=== PATIENT | male | born 1930 | race Caucasian/White ===

== ENCOUNTER → 2016-10-21 | Outpatient (CLI) | payer MEDICARE | LOC: OD 09:51 | PROVIDERS: ATTEND Urology | DX: N40.0 Benign prostatic hyperplasia without lower urinary tract symptoms (principal) | CPT/HCPCS: 36415; 84153 ==

== ENCOUNTER 2017-10-09 09:28 | Emergency (ER) | payer MEDICARE ==
[2017-10-09] MEDS ORDERED: NORMAL SALINE 1000 ML 1,000 ML IV ONE (09:42)
[2017-10-09] MEDS ORDERED: ONDANSETRON HCL INJ/PF 4 MG/2 ML SDV IV ONE (09:43)
--- NOTE | 2017-10-09 09:45 | ER Document Report ---
ED Medical Screen (RME) - General Chief Complaint: Abdominal Pain Stated Complaint: STOMACH PAIN Time Seen by Provider: 10/09/17 09:39 Mode of Arrival: Ambulatory Information source: Patient Notes: 87-year-old male who is supposed to be on oxygen but did not come with his portable presents with complaints of abdominal pain. Patient notes he has a history of bladder cancer, had abdominal pain that started yesterday associated with vomiting Patient's last bowel movement was yesterday I have greeted and performed a rapid initial assessment of this patient. A comprehensive ED assessment and evaluation of the patient, analysis of test results and completion of the medical decision making process will be conducted by additional ED providers. PHYSICAL EXAMINATION: GENERAL: Well-appearing, well-nourished and in no acute distress. HEAD: Atraumatic, normocephalic. EYES: Pupils equal round extraocular movements intact, conjunctiva are normal. ENT: Nares patent NECK: Normal range of motion ABDOMEN: Firm tender LUNGS: intermittent wheezing Musculoskeletal: Normal range of motion NEUROLOGICAL: Normal speech, normal gait. PSYCH: Normal mood, normal affect. SKIN:lips are dusky TRAVEL OUTSIDE OF THE [place] IN LAST 30 DAYS: No - Related Data Allergies/Adverse Reactions: No Known Allergies Allergy (Verified 10/09/17 09:33) Past Medical History Psychiatric Medical History: Denies: Hx Depression Past Surgical History: Reports: Hx Cardiac Surgery - filter Physical Exam - Vital signs Vitals: Temp Pulse Resp BP Pulse Ox 97.6 F 58 L 20 126/72 H 87 L 10/09/17 09:39 10/09/17 09:39 10/09/17 09:39 10/09/17 09:39 10/09/17 09:39 Course - Vital Signs Vital signs: Temp Pulse Resp BP Pulse Ox 97.6 F 58 L 20 126/72 H 87 L 10/09/17 09:39 10/09/17 09:39 10/09/17 09:39 10/09/17 09:39 10/09/17 09:39
[2017-10-09 10:17] LABS: HEMATOCRIT 53.5 % (37.9-51.0); HEMOGLOBIN 18.3 g/dL (13.5-17.0); MEAN CORPUSCULAR HEMOGLOBIN 33.7 pg (27.0-33.4); MEAN CORPUSCULAR HGB CONC 34.1 g/dL (32.0-36.0); MEAN CORPUSCULAR VOLUME 99 fl (80-97); PLATELET COUNT 285 10^3/uL (150-450); RED BLOOD COUNT 5.42 10^6/uL (4.35-5.55); RED CELL DISTRIBUTION WIDTH 14.4 % (11.5-14.0); WHITE BLOOD COUNT 23.4 10^3/uL (4.0-10.5)
[2017-10-09 10:36] LABS: INTERNATIONAL RATION (INR) 1.49; PROTHROMBIN TIME 18.9 SEC (11.4-15.4)
[2017-10-09 10:41] LABS: ABSOLUTE LYMPHOCYTES# (MANUAL) 0.2 10^3/uL (0.5-4.7); ABSOLUTE MONOCYTES # (MANUAL) 1.6 10^3/uL (0.1-1.4); ABSOLUTE NEUTROPHILS# (MANUAL) 21.5 10^3/uL (1.7-8.2); BASOPHILS % (MANUAL) 0 % (0-2); EOSINOPHILS % (MANUAL) 0 % (0-6); LYMPHOCYTES % (MANUAL) 1 % (13-45); MONOCYTES % (MANUAL) 7 % (3-13); SEGMENTED NEUTROPHILS % (MAN) 92 % (42-78); TOTAL CELLS COUNTED 100
[2017-10-09 10:44] LABS: ANISOCYTOSIS SLIGHT; PLATELET COMMENT ADEQUATE; TOXIC GRANULATION 1+; TOXIC VACUOLATION PRESENT
[2017-10-09 10:46] LABS: COLOR,URINE STRAW
[2017-10-09 10:47] LABS: APPEARANCE,URINE CLEAR; BILIRUBIN,URINE NEGATIVE (NEGATIVE); GLUCOSE, URINE NEGATIVE (NEGATIVE); KETONES,URINE NEGATIVE (NEGATIVE); LEUKOCYTE ESTERASE,URINE NEGATIVE (NEGATIVE); NITRITE,URINE NEGATIVE (NEGATIVE); PROTEIN,URINE NEGATIVE (NEGATIVE); URINE SPECIFIC GRAVITY 1.015; UROBILINOGEN,URINE NEGATIVE mg/dL (<2.0)
[2017-10-09 11:19] LABS: ALANINE AMINOTRANSFERASE 16 U/L (21-72); ALBUMIN 3.9 g/dL (3.5-5.0); ALKALINE PHOSPHATASE 66 U/L (38-126); ANION GAP 9 (5-19); ASPARTATE AMINO TRANSFERASE 24 U/L (17-59); BILIRUBIN,DIRECT 0.7 mg/dL (0.0-0.4); BILIRUBIN,TOTAL 2.8 mg/dL (0.2-1.3); BLOOD UREA NITROGEN 49 mg/dL (7-20); CALCIUM 8.8 mg/dL (8.4-10.2); CARBON DIOXIDE 35 mmol/L (22-30); CHLORIDE 94 mmol/L (98-107); GLUCOSE 97 mg/dL (75-110); SODIUM 138.1 mmol/L (137-145); TOTAL PROTEIN 7.4 g/dL (6.3-8.2)
[2017-10-09 11:21] LABS: POTASSIUM 2.9 mmol/L (3.6-5.0)
[2017-10-09] MEDS ORDERED: AMPICILLIN SOD/SULBACTAM 3 GM VIAL IV ONE (11:40)
--- NOTE | 2017-10-09 11:40 | RADIOLOGY REPORT (SQ) ---
EXAM DESCRIPTION: ACUTE ABDOMEN SERIES COMPLETED DATE/TIME: 10/09/2017 11:05 am REASON FOR STUDY: abd pain, hypoxemia COMPARISON: None. NUMBER OF VIEWS: Three views. TECHNIQUE: Frontal chest, supine abdomen and upright/ abdomen radiographic images acquired. LIMITATIONS: None. FINDINGS: CHEST: Chronic interstitial changes are present. FREE AIR: None. No abnormal gas collections. BOWEL GAS PATTERN: Nonobstructive gas pattern. A large amount of fecal material is present. CALCIFICATIONS: No suspicious calcifications. HARDWARE: None in the abdomen. SOFT TISSUES: No gross mass or suggestion of organomegaly. BONES: No acute fracture. No worrisome bone lesions. OTHER: No other significant finding. IMPRESSION: Chronic lung changes. Constipation. TECHNICAL DOCUMENTATION: JOB ID: [id number] [employer]- All Rights Reserved Reading location - IP/workstation name: [email or web address]
[2017-10-09] MEDS ORDERED: RINGERS SOLUTION,LACTATED 1,000 ML IV ONE (11:48)
--- NOTE | 2017-10-09 13:43 | RADIOLOGY REPORT (SQ) ---
EXAM DESCRIPTION: CT ABD/PELVIS WITH IV ORAL COMPLETED DATE/TIME: 10/09/2017 12:53 pm REASON FOR STUDY: abd pain, vomiting , hx bladder ca COMPARISON: CT abdomen pelvis 12/28/2014, 09/30/2013 TECHNIQUE: CT scan of the abdomen and pelvis performed using helical scanning technique with dynamic intravenous contrast injection. Patient drank oral contrast. Images reviewed with lung, soft tissue , and bone windows. Reconstructed coronal and sagittal MPR images reviewed. Delayed images for evalua tion of the urinary system also acquired. All images stored on PACS. All CT scanners at this facility use dose modulation, iterative reconstruction, and/or weight based d osing when appropriate to reduce radiation dose to as low as reasonably achievable (ALARA). [facility]: Dose Right [facility]: CareDose [facility]: Dose Right [facility]: Teradose 4D [facility]: [employer] CONTRAST TYPE AND DOSE: contrast/concentration: Isovue 370.00 mg/ml; Total Contrast Delivered: 75.0 ml; Total Saline Delivered: 67.0 ml RENAL FUNCTION: Creatinine 1.06 RADIATION DOSE: CT Rad equipment meets quality standard of care and radiation dose reduction techniq ues were employed. CTDIvol: 7.3 - 10.8 mGy. DLP: 855 mGy-cm.. LIMITATIONS: None. FINDINGS: LOWER CHEST: Small hiatal hernia, with mild gastroesophageal reflux. LIVER: Normal size. No masses. No dilated ducts. SPLEEN: Surgically absent. PANCREAS: Subtle retroperitoneal inflammation along the pancreatic body tail. Question pancreatitis. No gross pancreatic mass or pancreatic ductal dilatation. GALLBLADDER: Gallstones. No inflammatory changes to suggest cholecystitis. ADRENAL GLANDS: No significant masses or asymmetry. RIGHT KIDNEY AND URETER: No solid masses. No significant calcifications. No hydronephrosis or hyd roureter. LEFT KIDNEY AND URETER: No solid masses. No significant calcifications. No hydronephrosis or hydr oureter. AORTA AND VESSELS: No aneurysm. No dissection. Visceral arteries are patent. IVC filter. RETROPERITONEUM: No retroperitoneal adenopathy, hemorrhage or masses. BOWEL AND PERITONEAL CAVITY: No masses or inflammatory changes. No free fluid or peritoneal masses. Patient drank oral contrast. No CT evidence of bowel obstruction. Moderate stool throughout colon. APPENDIX: Normal. PELVIS: No mass. No free fluid. Normal bladder. ABDOMINAL WALL: No masses. No hernias. BONES: No significant or acute findings. OTHER: No other significant finding. IMPRESSION: Question mild peripancreatic inflammation from pancreatitis. No CT evidence of bowel obstruction. There are stones in the gallbladder without gallbladder wall thickening or pericholecystic fluid. TECHNICAL DOCUMENTATION: JOB ID: [id number] Quality ID # [id number]: Final reports with documentation of one or more dose reduction techniques (e.g., Au tomated exposure control, adjustment of the mA and/or kV according to patient size, use of iterative reconstruction technique) 2010 [employer]- All Rights Reserved Reading location - IP/workstation name: [email or web address]
--- NOTE | 2017-10-09 15:19 | ER Document Report ---
ED General - General Mode of Arrival: Ambulatory TRAVEL OUTSIDE OF THE [place] IN LAST 30 DAYS: No - HPI Patient complains to provider of: Epigastric abdominal pain <DESIREE PABLO - Last Filed: 10/09/17 15:20> <FUNMILAYO FENG - Last Filed: 10/09/17 22:16> - General Chief Complaint: Abdominal Pain Stated Complaint: STOMACH PAIN Time Seen by Provider: 10/09/17 09:39 - HPI Notes: Patient coming in for epigastric abdominal pain nausea vomiting ongoing for the last 24 hours. Patient states no bowel movements not passing gas currently. Patient states history of abdominal surgery in the past however continues to have his appendix and gallbladder. Patient is unaware what the surgery was for. Patient denies any fevers or chills. Upon my evaluation patient is bent over holding his abdomen drinking oral contrast is no CT scan was ordered in triage. Denies any sick contacts denies any recent travel. (DESIREE PABLO) - Related Data Allergies/Adverse Reactions: No Known Allergies Allergy (Verified 10/09/17 09:33) Past Medical History - General Information source: Patient - Social History Smoking Status: Former Smoker Chew tobacco use (# tins/day): No Frequency of alcohol use: None Drug Abuse: None Family History: Reviewed & Not Pertinent Patient has suicidal ideation: No Patient has homicidal ideation: No Renal/ Medical History: Denies: Hx Peritoneal Dialysis Psychiatric Medical History: Denies: Hx Depression Past Surgical History: Reports: Hx Cardiac Surgery - filter - Immunizations Hx Pneumococcal Vaccination: 07/13/11 <DESIREE PABLO - Last Filed: 10/09/17 15:20> Review of Systems - Review of Systems Constitutional: No symptoms reported EENT: No symptoms reported Cardiovascular: No symptoms reported Respiratory: No symptoms reported Gastrointestinal: Abdominal pain, Nausea, Vomiting Genitourinary: No symptoms reported Male Genitourinary: No symptoms reported Musculoskeletal: No symptoms reported Skin: No symptoms reported Hematologic/Lymphatic: No symptoms reported Neurological/Psychological: No symptoms reported -: Yes All other systems reviewed and negative <DESIREE PABLO - Last Filed: 10/09/17 15:20> Physical Exam - Vital signs Interpretation: Normal - General General appearance: Appears well, Alert - HEENT Head: Normocephalic, Atraumatic Eyes: Normal Pupils: PERRL - Respiratory Respiratory status: No respiratory distress Chest status: Nontender Breath sounds: Normal Chest palpation: Normal - Cardiovascular Rhythm: Regular Heart sounds: Normal auscultation Murmur: No - Abdominal Inspection: Normal Distension: No distension Bowel sounds: Normal Tenderness: Tender - Epigastric tenderness mild right upper quadrant tenderness as well as mild no guarding or rebound Organomegaly: No organomegaly - Back Back: Normal, Nontender - Extremities General upper extremity: Normal inspection, Nontender, Normal color, Normal ROM , Normal temperature General lower extremity: Normal inspection, Nontender, Normal color, Normal ROM , Normal temperature, Normal weight bearing. No: Katty's sign - Neurological Neuro grossly intact: Yes Cognition: Normal Orientation: AAOx4 Radha Coma Scale Eye Opening: Spontaneous Radha Coma Scale Verbal: Oriented [place] Coma Scale Motor: Obeys Commands [place] Coma Scale Total: 15 Speech: Normal Motor strength normal: LUE, RUE, LLE, RLE Sensory: Normal - Psychological Associated symptoms: Normal affect, Normal mood - Skin Skin Temperature: Warm Skin Moisture: Dry Skin Color: Normal <DESIREE PABLO - Last Filed: 10/09/17 15:20> - Vital signs Vitals: Temp Pulse Resp BP Pulse Ox 97.6 F 58 L 20 126/72 H 87 L 10/09/17 09:39 10/09/17 09:39 10/09/17 09:39 10/09/17 09:39 10/09/17 09:39 Course - Laboratory Result Diagrams: 10/09/17 09:58 10/09/17 10:47 <DESIREE PABLO - Last Filed: 10/09/17 15:20> - Laboratory Result Diagrams: 10/09/17 09:58 10/09/17 10:47 <FUNMILAYO FENG - Last Filed: 10/09/17 22:16> - Re-evaluation Re-evalutation: 10/09/17 15:15 Patient coming in for epigastric pain patient has leukocytosis with elevation in his pancreatic enzymes. No fever patient's CAT scan showed cholelithiasis and pancreatic stranding consistent with pancreatitis. Patient does have a slight elevation in his bilirubin. I did discuss with the hospitalist Dr. tello pancreatitis the patient has gallstones and pancreatitis concern for gallstone pancreatitis and with elevation of bilirubin is recommended that we transfer to facility that can perform a ERCP. Discussed with family at bedside and agree with to be transferred to [facility] at this time. Patient case was discussed with Dr. Kang who agreed to accept the patient in transfer. Currently patient pain is manageable nausea vomiting also manageable. Is to give a dose of Unasyn pending CAT scan results. We will keep the patient n.p.o. IV fluids will replace patient's potassium. 10/09/17 15:27 (DESIREE PABLO) 10/09/17 22:12 Received patient in signout. Patient with pancreatitis, leukocytosis. He is awaiting transport to [facility]. During his ED course patient did have a run of what appeared to be V. tach but EKG showed right bundle branch block with first-degree AV block. previous EKGs reviewed for comparison and unchanged. Patient without chest pain. Patient has remained stable throughout his ED course. He was reevaluated prior to transfer to [facility]. 10/09/17 22:14 10/09/17 22:16 (FUNMILAYO FENG) - Vital Signs Vital signs: Temp Pulse Resp BP Pulse Ox 97.8 F 58 L 19 106/68 91 L 10/09/17 22:00 10/09/17 09:39 10/09/17 21:56 10/09/17 21:56 10/09/17 21:56 - Laboratory Laboratory results interpreted by me: 10/09/17 10/09/17 10/09/17 09:58 09:58 10:17 WBC 23.4 H Hgb 18.3 H Hct 53.5 H MCV 99 H MCH 33.7 H RDW 14.4 H Seg Neuts % (Manual) 92 H Lymphocytes % (Manual) 1 L Abs Neuts (Manual) 21.5 H Abs Lymphs (Manual) 0.2 L Abs Monocytes (Manual) 1.6 H PT 18.9 H Potassium Chloride Carbon Dioxide BUN Lactic Acid 2.6 H Total Bilirubin Direct Bilirubin ALT Lactate Dehydrogenase Lipase 10/09/17 10/09/17 10/09/17 10:47 10:47 14:25 WBC Hgb Hct MCV MCH RDW Seg Neuts % (Manual) Lymphocytes % (Manual) Abs Neuts (Manual) Abs Lymphs (Manual) Abs Monocytes (Manual) PT Potassium 2.9 L* Chloride 94 L Carbon Dioxide 35 H BUN 49 H Lactic Acid 2.3 H Total Bilirubin 2.8 H Direct Bilirubin 0.7 H ALT 16 L Lactate Dehydrogenase Lipase 1721.3 H 10/09/17 14:25 WBC Hgb Hct MCV MCH RDW Seg Neuts % (Manual) Lymphocytes % (Manual) Abs Neuts (Manual) Abs Lymphs (Manual) Abs Monocytes (Manual) PT Potassium Chloride Carbon Dioxide BUN Lactic Acid Total Bilirubin Direct Bilirubin ALT Lactate Dehydrogenase 783 H Lipase Discharge <DESIREE PABLO - Last Filed: 10/09/17 15:20> <FUNMILAYO FENG - Last Filed: 10/09/17 22:16> - Discharge Clinical Impression: Hypokalemia, Elevated bilirubin Cholelithiasis Qualifiers: Cholelithiasis location: gallbladder Cholecystitis presence: without cholecystitis Pancreatitis Qualifiers: Chronicity: acute Pancreatitis type: biliary Acute pancreatitis complication: unspecified Qualified Code(s): K85.10 - Biliary acute pancreatitis without necrosis or infection Nausea & vomiting Qualifiers: Vomiting type: unspecified Vomiting Intractability: unspecified Qualified Code( s): R11.2 - Nausea with vomiting, unspecified Condition: Fair Disposition: [facility] Referrals: SATISH ACOSTA MD [Primary Care Provider] - Follow up as needed
[2017-10-09] MEDS: POTASSI CL 20 MEQ/50 ML RIDER 20 MEQ/50 ML RTUPB IV SCH ×2 (15:27→16:37)
[2017-10-09] MEDS ORDERED: ERTAPENEM SODIUM INJ 1 GM VIAL IV SCH (18:00)
[2017-10-09 22:01] VITALS: BP 106/68
--- NOTE | 2017-10-10 10:25 | EKG REPORT ---
SEVERITY:- ABNORMAL ECG - SINUS RHYTHM FIRST DEGREE AV BLOCK RIGHT BUNDLE BRANCH BLOCK INFERIOR INFARCT, AGE INDETERMINATE (OLD) : Confirmed by: King Reynolds MD 10-Oct-2017 10:25:03
== END 2017-10-09 22:10 | disposition short-term general hospital (02) ==
LOC: ER 09:28
DX: K85.10 Biliary acute pancreatitis without necrosis or infection (principal); K80.20 Calculus of gallbladder without cholecystitis without obstruction; E87.6 Hypokalemia; E80.7 Disorder of bilirubin metabolism, unspecified; R11.2 Nausea with vomiting, unspecified; R10.13 Epigastric pain; Z87.891 Personal history of nicotine dependence
CPT/HCPCS: 93005; 99285; 96361; 96375; 96365; 96366; 96367; 96368; 36415; 83615; 83690; 83735; 85025; 85610; 80053; 81001; 83605; 74022; 74177; 93010; J0295; J1335; J2405; J3480; J7030; J7120

== ENCOUNTER 2017-10-30 21:36 | Inpatient (IN) | payer MEDICARE ==
[2017-10-30 22:28] LABS: HEMATOCRIT 53.3 % (37.9-51.0); HEMOGLOBIN 18.4 g/dL (13.5-17.0); MEAN CORPUSCULAR HEMOGLOBIN 33.7 pg (27.0-33.4); MEAN CORPUSCULAR HGB CONC 34.4 g/dL (32.0-36.0); MEAN CORPUSCULAR VOLUME 98 fl (80-97); PLATELET COUNT 385 10^3/uL (150-450); RED BLOOD COUNT 5.45 10^6/uL (4.35-5.55); RED CELL DISTRIBUTION WIDTH 14.2 % (11.5-14.0); WHITE BLOOD COUNT 24.6 10^3/uL (4.0-10.5)
[2017-10-30] MEDS ORDERED: NORMAL SALINE 500 ML IV ONE (22:30)
[2017-10-30] MEDS ORDERED: CEFEPIME 2 GM/D5W RTU 2 GM/50 ML RTUPB IV ONE (22:31)
[2017-10-30 22:35] LABS: ANION GAP 16 (5-19)
[2017-10-30 22:42] LABS: VENOUS BLOOD BASE EXCESS 8.4 mmol/L; VENOUS BLOOD HCO3 33.4 mmol/L (20-32); VENOUS BLOOD PCO2 45.2 mmHg (35-63); VENOUS BLOOD PH 7.49 (7.30-7.42)
[2017-10-30 22:45] LABS: ABSOLUTE LYMPHOCYTES# (MANUAL) 0.7 10^3/uL (0.5-4.7); ABSOLUTE MONOCYTES # (MANUAL) 1.5 10^3/uL (0.1-1.4); ABSOLUTE NEUTROPHILS# (MANUAL) 22.4 10^3/uL (1.7-8.2); BAND NEUTROPHILS % (MANUAL) 2 % (3-5); BASOPHILS % (MANUAL) 0 % (0-2); EOSINOPHILS % (MANUAL) 0 % (0-6); LYMPHOCYTES % (MANUAL) 3 % (13-45); MONOCYTES % (MANUAL) 6 % (3-13); SEGMENTED NEUTROPHILS % (MAN) 89 % (42-78); TOTAL CELLS COUNTED 100
--- NOTE | 2017-10-30 22:45 | ER Document Report ---
ED General - General Chief Complaint: Urinary Problem Stated Complaint: URINARY ISSUES Time Seen by Provider: 10/30/17 21:51 Cannot obtain history due to: Dementia Notes: Patient is an 87-year-old male with a past medical history of dementia medical history otherwise as recorded who presents from a nursing facility with concerns of a urinary tract infection and hypotension. The patient is unable to provide any meaningful history, only says "yeah" when you ask him any question. TRAVEL OUTSIDE OF THE [place] IN LAST 30 DAYS: No - Related Data Allergies/Adverse Reactions: No Known Allergies Allergy (Verified 10/09/17 09:33) Past Medical History - General Information source: Transfer Record, Emergency Med Personnel, [facility] Records Cannot obtain history due to: Dementia - Social History Smoking Status: Former Smoker Frequency of alcohol use: None Drug Abuse: None Lives with: Senior Living Family History: Reviewed & Not Pertinent Patient has suicidal ideation: No Patient has homicidal ideation: No Renal/ Medical History: Denies: Hx Peritoneal Dialysis Psychiatric Medical History: Denies: Hx Depression Past Surgical History: Reports: Hx Cardiac Surgery - filter - Immunizations Hx Pneumococcal Vaccination: 07/13/11 Review of Systems - Review of Systems -: Yes ROS unobtainable due to patient's medical condition Physical Exam - Vital signs Vitals: Resp 21 H 10/30/17 21:46 Interpretation: Hypotensive, Tachypneic Notes: PHYSICAL EXAMINATION: GENERAL: Appears stated age. Somewhat frail. Mildly lethargic HEAD: Atraumatic, normocephalic. EYES: Pupils equal round and reactive to light, extraocular movements intact, sclera anicteric, conjunctiva are normal. ENT: nares patent, oropharynx clear without exudates. Moderately dry mucous membranes. NECK: Normal range of motion, supple without lymphadenopathy LUNGS: Breath sounds clear to auscultation bilaterally and equal. No wheezes rales or rhonchi. HEART: Regular rate and rhythm ABDOMEN: Soft, nontender, normoactive bowel sounds. No guarding, no rebound. No masses appreciated. EXTREMITIES: no pitting or edema. No cyanosis. NEUROLOGICAL: No focal neurological deficits. Moves all extremities spontaneously and on command. PSYCH: Somewhat lethargic but not oriented SKIN: Warm, Dry, poor skin turgor. Course - Re-evaluation Re-evalutation: 10/30/17 22:43 Patient presents with concerns of a urinary tract infection based on results of urinalysis obtained in the skilled nursing 2 days ago. Review of that urinalysis does show findings consistent with pyelonephritis. Patient presents obviously profoundly demented but in no acute distress. He is noted to be hypotensive at time of arrival and review his most recent visit approximately 20 days ago shows that he is not hypotensive at baseline. Patient does have a history of congestive heart failure so we will be gentle fluid resuscitation by starting with a 500 cc bolus. His current map is 70 with a pressure of 90 and 60. He is not tachycardic or hypothermic. Will also begin IV cefepime for broad- spectrum coverage given his hypotension. Anticipate admission. Awaiting the remainder of laboratories. 10/30/17 23:09 Patient's blood pressure is gradually improving now up to 99 on 61. Patient continues to be somewhat lethargic but otherwise is in no overt distress. Will continue to reassess at regular intervals. Labs have returned and do show hypokalemia. We are beginning potassium and magnesium repletion. Of note, there is a national shortage of IV potassium riders so we will attempt oral potassium and IV magnesium. Patient's laboratories also so show acute kidney failure, creatinine at 2.31 up from patient's apparent baseline 1 month ago of 1.03. White blood cell count is likewise markedly elevated. Presentation is overall consistent with severe sepsis. Lactate however is only mildly elevated at 2.1. Will continue to reassess at regular intervals as patient remains in very guarded condition. 10/31/17 00:26 Patient's blood pressure has continued to improve with IV fluids. I have discussed this case with the hospitalist at this time and she has accepted him for admission. - Vital Signs Vital signs: Temp Pulse Resp BP Pulse Ox 98.8 F 18 127/89 H 96 10/31/17 01:50 10/31/17 01:46 10/31/17 01:46 10/31/17 01:46 - Laboratory Result Diagrams: 10/30/17 21:56 10/30/17 21:56 Laboratory results interpreted by me: 10/30/17 10/30/17 10/30/17 21:56 21:56 21:56 WBC 24.6 H Hgb 18.4 H Hct 53.3 H MCV 98 H MCH 33.7 H RDW 14.2 H Seg Neuts % (Manual) 89 H Band Neutrophils % 2 L Lymphocytes % (Manual) 3 L Abs Neuts (Manual) 22.4 H Abs Monocytes (Manual) 1.5 H VBG pH 7.49 H VBG HCO3 33.4 H Sodium 136.8 L Potassium 2.8 L* Chloride 82 L Carbon Dioxide 39 H BUN 102 H Creatinine 2.29 H Est GFR ( Amer) 33 L Est GFR (Non-Af Amer) 27 L Glucose 131 H Urine Protein Urine Blood Urine Urobilinogen Ur Leukocyte Esterase 10/30/17 22:55 WBC Hgb Hct MCV MCH RDW Seg Neuts % (Manual) Band Neutrophils % Lymphocytes % (Manual) Abs Neuts (Manual) Abs Monocytes (Manual) VBG pH VBG HCO3 Sodium Potassium Chloride Carbon Dioxide BUN Creatinine Est GFR ( Amer) Est GFR (Non-Af Amer) Glucose Urine Protein 30 H Urine Blood MODERATE H Urine Urobilinogen 2.0 H Ur Leukocyte Esterase LARGE H Critical Care Note - Critical Care Note Total time excluding time spent on procedures (mins): 36 Comments: Critical care time spent obtaining history from patient or surrogate, discussions with consultants, development of treatment plan with patient or surrogate, evaluation of patient's response to treatment, examination of patient , ordering and performing treatments and interventions, ordering and review of laboratory studies, re-evaluation of patient's condition, ordering and review of radiographic studies and review of old charts Discharge - Discharge Clinical Impression: Severe sepsis, Pyelonephritis, Acute kidney injury Condition: Fair Disposition: ADMITTED INPATIENT Admitting Provider: Hospitalist Unit Admitted: [facility]
[2017-10-30 22:46] LABS: ANISOCYTOSIS SLIGHT; PLATELET COMMENT ADEQUATE; TOXIC GRANULATION SLIGHT; TOXIC VACUOLATION PRESENT
[2017-10-30 22:52] LABS: BLOOD UREA NITROGEN 102 mg/dL (7-20); CALCIUM 9.4 mg/dL (8.4-10.2); CHLORIDE 82 mmol/L (98-107); GLUCOSE 131 mg/dL (75-110); SODIUM 136.8 mmol/L (137-145)
[2017-10-30 23:00] LABS: CARBON DIOXIDE 39 mmol/L (22-30)
[2017-10-30 23:03] LABS: POTASSIUM 2.8 mmol/L (3.6-5.0)
[2017-10-30] MEDS ORDERED: POTASSI CL 20 MEQ/50 ML RIDER 20 MEQ/50 ML RTUPB IV ONE ×2 (23:07→23:27)
[2017-10-30] MEDS ORDERED: POTASSIUM CHLORIDE 20 MEQ/15 ML UDCUP PO ONE (23:09)
[2017-10-30 23:24] LABS: APPEARANCE,URINE CLOUDY; BILIRUBIN,URINE NEGATIVE (NEGATIVE); COLOR,URINE YELLOW; GLUCOSE, URINE NEGATIVE (NEGATIVE); KETONES,URINE NEGATIVE (NEGATIVE); LEUKOCYTE ESTERASE,URINE LARGE (NEGATIVE); NITRITE,URINE NEGATIVE (NEGATIVE); PROTEIN,URINE 30 mg/dL (NEGATIVE)
[2017-10-30] MEDS: MAGNESIUM SULFATE/D5W 1 GM/100 ML RTUPB IV SCH ×2 (23:28→23:58)
[2017-10-31] MEDS ORDERED: RINGERS SOLUTION,LACTATED 500 ML IV ONE (00:08)
[2017-10-31] MEDS ORDERED: ACETAMINOPHEN 325 MG TABLET PO PRN ×2 (00:34→11:47)
[2017-10-31] MEDS ORDERED: ALBUTEROL SULFATE 0.083% NEB 2.5 MG/3 ML AMPUL NEB PRN ×2 (00:34→08:40)
[2017-10-31] MEDS ORDERED: PIPERACILLIN/TAZOBACTAM 2.25 GM VIAL IV PRN (00:55)
--- NOTE | 2017-10-31 01:28 | RADIOLOGY REPORT (SQ) ---
EXAM DESCRIPTION: CHEST SINGLE VIEW CLINICAL HISTORY: tachypnea COMPARISON: 12/28/2014 FINDINGS: Single frontal view of the chest. Atherosclerotic calcification and tortuosity of thoracic aorta. Heart is not enlarged. Chronic appearing interstitial opacities. Leads overlie the chest. No consolidation, pneumothorax, or pleural effusion. No displaced rib fractures identified. Upper abdominal soft tissues are unremarkable. IMPRESSION: 1. No acute pneumonic process identified.
[2017-10-31] MEDS: NORMAL SALINE 1000 ML 1,000 ML IV PRN ×2 (03:11→12:28)
[2017-10-31] MEDS ORDERED: BISACODYL 10 MG SUPP.RECT PR PRN (03:40)
[2017-10-31] MEDS ORDERED: POLYETHYLENE GLYCOL 3350 POWDER 17 GM/1 PACKET PO PRN (03:42)
--- NOTE | 2017-10-31 03:52 | PDOC H&P ---
History of Present Illness Admission Date/PCP: SATISH ACOSTA Patient complains of: Sent from SNF for further evaluation of suspected UTI. History of Present Illness: DEJON ROBLERO is a 87 year old male with reported history of dementia of Alzheimer's type, COPD (not sure if on home oxygen), CHF and atrial fib (not sure if anticoagulated) was admitted with above-mentioned complaints. Given the patient's mental status and the fact that very breif note was sent with him from SNF, most of the history was obtained from the ED physician/notes. According to the ED note, the patient was suspected to have UTI based on urinalysis done 2 days ago. The patient currently is denying any chest pain or shortness of breath or any cough. He complains of abdominal pain but he is unable to elaborate further. He was not sure if he was constipated and there was no report of any fever, nausea, vomiting or dysphagia. He said that he is able to ambulate using a cane. In the ED, his temperature was 98.3, heart rate 79, respiratory rate 21 (up to 31 so he was placed on 4 L oxygen via nasal cannula), blood pressure 83/60 with oxygen saturation of 95% on 4 L nasal cannula. His WBC was 24.6 and his hemoglobin was 18.4. His potassium was 2.8 and his BUN/creatinine was 102/2.29 (up from 49/1.06 on 10/09/2017). Lactic acid was 2.1. UA was positive. Chest x -ray is pending. He received 500 mL of both LR and NS x1. He also received 2 gm Cefepime x1 and 20 milliequivalent oral potassium 1 (since IV form is not available). Past Medical History Medical History: Other - Based on previous records. Cardiac Medical History: Reports: Atrial Fibrillation, Congestive Heart Failure , Hyperlipidema Pulmonary Medical History: Reports: Chronic Obstructive Pulmonary Disease (COPD) Psychiatric Medical History: Denies: Depression Past Surgical History Past Surgical History: Reports: Other - Based on previous records. Social History Smoking Status: Former Smoker Cigarettes Packs Per Day: 0 - 1 pack a day for about 20 years. He quit 40 years ago. Frequency of Alcohol Use: None Hx Recreational Drug Use: No Hx Prescription Drug Abuse: No - Advance Directive Resuscitation Status: Other - Needs to be clarified. Family History Parental Family History Reviewed: Yes - No family history of cardiac or diabetes per patient. Children Family History Reviewed: No Sibling(s) Family History Reviewed.: Yes Medication/Allergy Allergies/Adverse Reactions: No Known Allergies Allergy (Verified 10/09/17 09:33) Review of Systems ROS unobtainable: Other - Unable to obtain an accurate review of system given the patient's mental status. Physical Exam Vital Signs: Temp Pulse Resp BP Pulse Ox 98.3 F 37 H 106/68 93 10/30/17 22:24 10/30/17 23:42 10/30/17 23:42 10/30/17 23:31 Intake & Output 10/29/17 10/30/17 10/31/17 06:59 06:59 06:59 Weight 68.039 kg General appearance: PRESENT: no acute distress, thin Head exam: PRESENT: atraumatic, normocephalic Eye exam: PRESENT: PERRLA Mouth exam: PRESENT: moist Neck exam: PRESENT: full ROM. ABSENT: JVD Respiratory exam: PRESENT: decreased breath sounds. ABSENT: rales, rhonchi, wheezes Cardiovascular exam: PRESENT: RRR, +S1, +S2 Pulses: PRESENT: normal dorsalis pedis pul GI/Abdominal exam: PRESENT: normal bowel sounds, soft. ABSENT: distended, rebound, tenderness Rectal exam: PRESENT: deferred Extremities exam: ABSENT: pedal edema Musculoskeletal exam: PRESENT: other - able to move all 4 extremities. Neurological exam: PRESENT: awake, oriented to person, oriented to place - Able to move all 4 extremities, unable to assess sensory deficit. No Babinski or clonus. Gait was not assessed. Skin exam: PRESENT: dry, warm. ABSENT: erythema, rash Results Laboratory Results: 10/30/17 21:56 10/30/17 21:56 10/30/17 10/30/17 10/30/17 21:56 21:56 21:56 WBC 24.6 H RBC 5.45 Hgb 18.4 H Hct 53.3 H MCV 98 H MCH 33.7 H MCHC 34.4 RDW 14.2 H Plt Count 385 Seg Neutrophils % Not Reportable Lymphocytes % Not Reportable Monocytes % Not Reportable Eosinophils % Not Reportable Basophils % Not Reportable Absolute Neutrophils Not Reportable Absolute Lymphocytes Not Reportable Absolute Monocytes Not Reportable Absolute Eosinophils Not Reportable Absolute Basophils Not Reportable VBG pH VBG pCO2 VBG HCO3 VBG Base Excess Sodium 136.8 L Potassium 2.8 L* Chloride 82 L Carbon Dioxide 39 H Anion Gap 16 BUN 102 H Creatinine 2.29 H Est GFR ( Amer) 33 L Est GFR (Non-Af Amer) 27 L Glucose 131 H Lactic Acid 2.1 Calcium 9.4 Urine Color Urine Appearance Urine pH Ur Specific [place] Urine Protein Urine Glucose (UA) Urine Ketones Urine Blood Urine Nitrite Ur Leukocyte Esterase Urine WBC (Auto) Urine RBC (Auto) 10/30/17 10/30/17 21:56 22:55 WBC RBC Hgb Hct MCV MCH MCHC RDW Plt Count Seg Neutrophils % Lymphocytes % Monocytes % Eosinophils % Basophils % Absolute Neutrophils Absolute Lymphocytes Absolute Monocytes Absolute Eosinophils Absolute Basophils VBG pH 7.49 H VBG pCO2 45.2 VBG HCO3 33.4 H VBG Base Excess 8.4 Sodium Potassium Chloride Carbon Dioxide Anion Gap BUN Creatinine Est GFR ( Amer) Est GFR (Non-Af Amer) Glucose Lactic Acid Calcium Urine Color YELLOW Urine Appearance CLOUDY Urine pH 6.0 Ur Specific [place] 1.010 Urine Protein 30 H Urine Glucose (UA) NEGATIVE Urine Ketones NEGATIVE Urine Blood MODERATE H Urine Nitrite NEGATIVE Ur Leukocyte Esterase LARGE H Urine WBC (Auto) >182 Urine RBC (Auto) 7 EKG Comments: Lead EKG: Sinus rhythm ventricular rate 80, axis -100, right bundle branch block , QTc prolongation, poor R-wave propagation. Similar when compared to previous twelve-lead EKG done on 10/09/2017. Assessment & Plan - Diagnosis (1) Acute kidney injury Is this a current diagnosis for this admission?: Yes Plan: Prerenal, renal (ATN given hypotension) and/or post renal. His BUN/creatinine was 102/2.29 up from 49/1.06 on 10/09/2017. Will continue IV hydration and check urine osm, sodium, protein/creatinine. His UA is positive. Will start Zosyn for broad coverage antibiotics awaiting cultures. Will also check kidney ultrasound and avoid nephrotoxic medications. We will continue to monitor kidney function and urine output. (2) UTI (urinary tract infection) Qualifiers: Urinary tract infection type: site unspecified Is this a current diagnosis for this admission?: Yes Plan: Will continue Zosyn for now awaiting urine culture. (3) Hypotension Is this a current diagnosis for this admission?: Yes Plan: Secondary to infection and/or medications or hypovolemia. We will continue IV hydration and Zosyn and start pressors if indicated. Follow-up blood and urine cultures. (4) Leukocytosis Is this a current diagnosis for this admission?: Yes Plan: secondary to UTI and/or hypovolemia. The patient does not meet sepsis criteria. Will continue management per #1. (5) Diffuse abdominal pain Is this a current diagnosis for this admission?: Yes Plan: Possibly secondary to UTI. Of note, the patient had an abdominal series on 10/09 which showed severe obstipation. Will start bowel regimen (6) Azotemia Is this a current diagnosis for this admission?: Yes Plan: Management as per #1. (7) Hypokalemia Is this a current diagnosis for this admission?: Yes Plan: Will continue to replace as indicated. (8) Tachypnea Is this a current diagnosis for this admission?: Yes Plan: The patient has history of COPD, not sure if he is on home oxygen. There was no report of any dysphasia or aspiration. We will follow-up chest x-ray. We may need to add vancomycin if he has pneumonia to cover HCAP. Blood cultures were already drawn in the ED. - Time Time Spent: Greater than 70 Minutes - Inpatient Certification Based on my medical assessment, after consideration of the patient's comorbidities, presenting symptoms, or acuity I expect that the services needed warrant INPATIENT care.: Yes I certify that my determination is in accordance with my understanding of Medicare's requirements for reasonable and necessary INPATIENT services [42 CFR 412.3e].: Yes
[2017-10-31 04:04] LABS: OSMOLALITY,URINE 327 mOsm/kg (300-900)
[2017-10-31 04:15] LABS: UR PRO/CREAT RATIO RESULT 0.8 mg/mg (0.0-0.2); URINE CREATININE 78.2 mg/dL (22-328); URINE PROTEIN 65.2 mg/dL (<12)
--- NOTE | 2017-10-31 04:20 | PDOC H&P ---
History of Present Illness Admission Date/PCP: 10/31/17 00:43 SATISH ACOSTA Patient complains of: Sent from SNF for further evaluation of suspected UTI. History of Present Illness: DEJON ROBLERO is a 87 year old male with reported history of dementia of Alzheimer's type, COPD (not sure if on home oxygen), CHF and atrial fib (not sure if anticoagulated) was admitted with above-mentioned complaints. Given the patient's mental status and the fact that very breif note was sent with him from SNF, most of the history was obtained from the ED physician/notes. According to the ED note, the patient was suspected to have UTI based on urinalysis done 2 days ago. The patient currently is denying any chest pain or shortness of breath or any cough. He complains of abdominal pain but he is unable to elaborate further. He was not sure if he was constipated and there was no report of any fever, nausea, vomiting or dysphagia. He said that he is able to ambulate using a cane. In the ED, his temperature was 98.3, heart rate 79, respiratory rate 21 (up to 31 so he was placed on 4 L oxygen via nasal cannula), blood pressure 83/60 with oxygen saturation of 95% on 4 L nasal cannula. His WBC was 24.6 and his hemoglobin was 18.4. His potassium was 2.8 and his BUN/creatinine was 102/2.29 (up from 49/1.06 on 10/09/2017). Lactic acid was 2.1. UA was positive. Chest x -ray is pending. He received 500 mL of both LR and NS x1. He also received 2 gm Cefepime x1 and 20 milliequivalent oral potassium 1 (since IV form is not available). Past Medical History Medical History: Other - Based on previous records. Cardiac Medical History: Reports: Atrial Fibrillation, Congestive Heart Failure , Hyperlipidema Pulmonary Medical History: Reports: Chronic Obstructive Pulmonary Disease (COPD) Psychiatric Medical History: Denies: Depression Past Surgical History Past Surgical History: Reports: Other - Based on previous records. Social History [facility] with: [facility] Smoking Status: Former Smoker Cigarettes Packs Per Day: 0 - 1 pack a day for about 20 years. He quit 40 years ago. Frequency of Alcohol Use: None Hx Recreational Drug Use: No Hx Prescription Drug Abuse: No - Advance Directive Resuscitation Status: Other - Needs to be clarified. Family History Parental Family History Reviewed: Yes - The patient denied any family history of cardiac disease or diabetes. Children Family History Reviewed: No Sibling(s) Family History Reviewed.: Yes Medication/Allergy Allergies/Adverse Reactions: No Known Allergies Allergy (Verified 10/09/17 09:33) Review of Systems ROS unobtainable: Other - Unable to obtain accurate review of system given the patient's mental status. Physical Exam Vital Signs: Temp Pulse Resp BP Pulse Ox 98.8 F 18 127/89 H 96 10/31/17 01:50 10/31/17 01:46 10/31/17 01:46 10/31/17 01:46 Intake & Output 10/29/17 10/30/17 10/31/17 06:59 06:59 06:59 Output Total 50 Balance -50 General appearance: PRESENT: no acute distress, thin Head exam: PRESENT: atraumatic, normocephalic Eye exam: PRESENT: PERRLA Mouth exam: PRESENT: moist Neck exam: PRESENT: full ROM. ABSENT: JVD Respiratory exam: PRESENT: decreased breath sounds. ABSENT: rales, rhonchi, wheezes Cardiovascular exam: PRESENT: RRR, +S1, +S2 Pulses: PRESENT: normal dorsalis pedis pul GI/Abdominal exam: PRESENT: normal bowel sounds, soft. ABSENT: distended, rebound, tenderness Rectal exam: PRESENT: deferred Extremities exam: ABSENT: pedal edema Musculoskeletal exam: PRESENT: other - able to move all 4 extremities. Neurological exam: PRESENT: awake, oriented to person, oriented to place - motor 4/5 throughout. Unable to assess sensory deficit. No Babinski or clonus. Gait was not assessed. Skin exam: PRESENT: warm. ABSENT: erythema, rash Results Laboratory Results: 10/31/17 02:14 Lactic Acid 2.0 EKG Comments: Lead EKG: Sinus rhythm ventricular rate 80, axis -100, right bundle branch block , QTc prolongation, poor R-wave propagation. Similar when compared to previous twelve-lead EKG done on 10/09/2017. Impressions: Chest X-Ray 10/31/17 00:00 IMPRESSION: 1. No acute pneumonic process identified. Assessment & Plan - Diagnosis (1) Severe sepsis Is this a current diagnosis for this admission?: Yes Plan: Given leukocytosis, tachypnea and hypotension (improving with IV hydration) in the setting of a UTI. Will continue Zosyn and follow-up blood and urine cultures. Will also recheck lactic acid. (2) Acute kidney injury Is this a current diagnosis for this admission?: Yes Plan: Prerenal, renal (ATN given hypotension) and/or post renal. His BUN/creatinine was 102/2.29 up from 49/1.06 on 10/09/2017. Will continue IV hydration and check urine osm, sodium, protein/creatinine. His UA is positive. Will start Zosyn for broad coverage antibiotics awaiting cultures. Will also check kidney ultrasound and avoid nephrotoxic medications. We will continue to monitor kidney function and urine output. (3) Tachypnea Is this a current diagnosis for this admission?: Yes Plan: The patient has history of COPD, not sure if he is on home oxygen. There was no report of any dysphasia or aspiration. We will follow-up chest x-ray. We may need to add vancomycin if he has pneumonia to cover HCAP. Blood cultures were already drawn in the ED. (4) UTI (urinary tract infection) Qualifiers: Urinary tract infection type: site unspecified Is this a current diagnosis for this admission?: Yes Plan: Will continue Zosyn for now awaiting urine culture. (5) Hypotension Is this a current diagnosis for this admission?: Yes Plan: Secondary to infection and/or medications or hypovolemia. We will continue IV hydration and Zosyn and start pressors if indicated. Follow-up blood and urine cultures. (6) Diffuse abdominal pain Is this a current diagnosis for this admission?: Yes Plan: Possibly secondary to UTI. Of note, the patient had an abdominal series on 10/09 which showed severe obstipation. Will start bowel regimen (7) Azotemia Is this a current diagnosis for this admission?: Yes Plan: Management as per #1. (8) Hypokalemia Is this a current diagnosis for this admission?: Yes Plan: Will continue to replace as indicated. - Time Time Spent: Greater than 70 Minutes - Inpatient Certification Based on my medical assessment, after consideration of the patient's comorbidities, presenting symptoms, or acuity I expect that the services needed warrant INPATIENT care.: Yes I certify that my determination is in accordance with my understanding of Medicare's requirements for reasonable and necessary INPATIENT services [42 CFR 412.3e].: Yes
[2017-10-31] MEDS ORDERED: OXYBUTYNIN CHLORIDE 5 MG TABLET PO ONE (05:15)
[2017-10-31] MEDS ORDERED: PIPERACILLIN/TAZOBACTAM 2.25 GM VIAL IV ONE (05:32)
[2017-10-31] MEDS: PIPERACILLIN SODIUM/TAZOBACTAM 2.25 GM in NORMAL SALINE 50 ML IV SCH ×4 (05:55→23:50)
[2017-10-31] MEDS ORDERED: HEPARIN SOD (PORCINE) 5,000 UNIT/ML 1 ML SYRINGE SUBCUT SCH (06:00)
[2017-10-31] MEDS ORDERED: BISACODYL 10 MG SUPP.RECT PR ONE (07:00)
--- NOTE | 2017-10-31 08:16 | RADIOLOGY REPORT (SQ) ---
EXAM DESCRIPTION: U/S RETROPERITON LTD COMPLETED DATE/TIME: 10/31/2017 7:06 am REASON FOR STUDY: MAINE COMPARISON: None. TECHNIQUE: Dynamic and static grayscale images acquired of the kidneys and bladder and recorded on P ACS. Additional selected color Doppler and spectral images recorded. LIMITATIONS: None. FINDINGS: RIGHT KIDNEY: Normal size. Normal echogenicity. No solid or suspicious masses. No h ydronephrosis. No calcifications. LEFT KIDNEY: Normal size. Normal echogenicity. No solid or suspicious masses. No hydronephrosi s. No calcifications. BLADDER: Decompressed with Farmer catheter. OTHER FINDINGS: No other significant finding. IMPRESSION: NORMAL RENAL ULTRASOUND. NO OBSTRUCTIVE UROPATHY. TECHNICAL DOCUMENTATION: JOB ID: [id number] [employer]- All Rights Reserved Reading location - IP/workstation name: [email or web address]
[2017-10-31 09:13] LABS: HEMATOCRIT 50.5 % (37.9-51.0); HEMOGLOBIN 17.1 g/dL (13.5-17.0); MEAN CORPUSCULAR HEMOGLOBIN 33.2 pg (27.0-33.4); MEAN CORPUSCULAR HGB CONC 33.9 g/dL (32.0-36.0); MEAN CORPUSCULAR VOLUME 98 fl (80-97); PLATELET COUNT 322 10^3/uL (150-450); RED BLOOD COUNT 5.15 10^6/uL (4.35-5.55); RED CELL DISTRIBUTION WIDTH 14.4 % (11.5-14.0); WHITE BLOOD COUNT 21.9 10^3/uL (4.0-10.5)
[2017-10-31 09:19] LABS: ANION GAP 13 (5-19); BLOOD UREA NITROGEN 100 mg/dL (7-20); CALCIUM 8.7 mg/dL (8.4-10.2); CARBON DIOXIDE 33 mmol/L (22-30); CHLORIDE 91 mmol/L (98-107); GLUCOSE 119 mg/dL (75-110); SODIUM 137.4 mmol/L (137-145)
[2017-10-31 09:23] LABS: POTASSIUM 2.7 mmol/L (3.6-5.0)
--- NOTE | 2017-10-31 09:25 | EKG REPORT ---
SEVERITY:- ABNORMAL ECG - SINUS OR ECTOPIC ATRIAL RHYTHM FIRST DEGREE AV BLOCK RBBB AND LPFB : Confirmed by: Sarai Mccracken 31-Oct-2017 09:25:01
[2017-10-31] MEDS ORDERED: NORMAL SALINE 1000 ML 1,000 ML IV ONE (09:30)
[2017-10-31] MEDS ORDERED: POTASSI CL 20 MEQ/50 ML RIDER 20 MEQ/50 ML RTUPB IV SCH (09:35)
[2017-10-31] MEDS ORDERED: POTASSI CL 40 MEQ/NS 1L 1,000 ML IV ONE (10:00)
--- NOTE | 2017-10-31 11:34 | PROGRESS NOTE E ---
Progress Note NAME: DEJON ROBLERO : 1930 AGE: 87Y DATE: 10/31/2017 ROOM: 333 SUBJECTIVE: The patient is currently lying in bed. The patient is awake and alert. The patient is complaining of right upper quadrant pain, which he says is consistent. The patient denies any nausea, vomiting. There is no diarrhea, shortness of breath, dizziness, or chest pain. The patient had a low-grade temperature of 99.6 but not actually febrile. Blood pressures have been hypotensive, and the patient does not voice any other concerns at this time. REVIEW OF SYSTEMS: The rest of the review systems is negative. MEDICATIONS: Reviewed. OBJECTIVE: GENERAL: The patient is an 87-year-old male who is awake, alert and oriented to person, place, time and situation. 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 VITAL SIGNS: As follows: Temperature 98.6, pulse 73, respirations 24, blood pressure 95/64, oxygen saturation is 99% on 4 L nasal cannula. SKIN: Warm and dry. No rash, not diaphoretic. HEENT: Pupils equal, round, reactive to light and accommodation. Conjunctivae are pink. There is no evidence of JVP. CARDIOVASCULAR: Heart is regular. There is no murmur or rub. CHEST: Clear, symmetrical, unlabored. ABDOMEN: Soft. There is no area of focal tenderness. EXTREMITIES: No clubbing, cyanosis, or edema. PSYCHIATRIC: Appropriate affect, pleasant mood. DIAGNOSTICS: Lab values are as follows: Hematology done on 10/30/2017, WBCs are 24.6, hemoglobin 15.4, hematocrit 53.3, platelet count is 385,000. Chemistry obtained on 10/30/2017: Sodium is 136, potassium 2.8, chloride 82, carbon dioxide 35, BUN 102, creatinine is 3.29. Glucose 131. Lactic acid is 2.1. Calcium is 94. Lipase 84.2. IMPRESSION AND PLAN: 1. SEVERE SEPSIS SECONDARY TO A URINARY TRACT INFECTION. The patient was noted to have leukocytosis and organ failure as well as hypotension. The patient will get yet another L fluid bolus. It appears overall by documentation the patient only has gotten a 1/2 L of fluid resuscitation. We will continue to volume resuscitate and follow. 2. ACUTE KIDNEY INJURY. Given the patient's BUN to creatinine ratio, this appears to be prerenal azotemia as the patient's baseline creatinine in September was 1.06. We will continue to hydrate and repeat chemistries this morning and follow. 3. CHRONIC OBSTRUCTIVE PULMONARY DISEASE. We will continue the patient's home medications. 4. TACHYPNEA. This is secondary to the above. The patient is maintaining his oxygen saturation better. 5. HYPOTENSION. I do believe this is part of the patient's sepsis process. Currently holding blood pressure medications and will hydrate. 6. RIGHT UPPER QUADRANT ABDOMINAL PAIN. Pending secondary to urinary tract infection; however, we will obtain a right upper quadrant ultrasound and bowel regimen. 7. HYPOKALEMIA. We will replete this and repeat the patient's chemistries this morning. DISPOSITION: The patient is a FULL CODE. Pending patient's symptomatology and diagnostic findings, we will reevaluate as needed. The patient may need transfer to critical care unit. ADDENDUM: I was notified of positive blood cultures of gram negative rods and persistent hypotension. Have given yet another bolus, repleated IV potassium, and added vanc to cover enterococcus. Will follow closely. Time spent on this critical care visit including assessment, plan, physical examination, patient education, review of records, and medications is 35 minutes. DICTATING PHYSICIAN: GERALD CARPENTER NP [id number] PHY#: [id number] ID: [id number] JOB#: [id number] ACCT: [id number] cc: > MTDD
[2017-10-31] MEDS ORDERED: (PENDING PHARMACY ID) (Hydroxyzine Hcl [Atarax 25 Mg Tablet] 25 MG) PO PRN (11:47)
[2017-10-31] MEDS ORDERED: HYDROXYZINE HCL 10 MG TABLET PO PRN (11:55)
[2017-10-31] MEDS ORDERED: VANCOMYCIN HCL 0 MG in DEXTROSE 5%-WATER 250 ML IV NR (12:00)
--- NOTE | 2017-10-31 13:35 | RADIOLOGY REPORT (SQ) ---
EXAM DESCRIPTION: U/S ABDOMEN LIMITED W/O DOP COMPLETED DATE/TIME: 10/31/2017 1:18 pm REASON FOR STUDY: RUQ pain, recent pancreatitis COMPARISON: CT from 10/09/2017 TECHNIQUE: Dynamic and static grayscale images acquired of the abdomen and recorded on PACS. Karina govea selected color Doppler and spectral images recorded. LIMITATIONS: None. FINDINGS: PANCREAS: No masses. Visualized pancreatic duct normal caliber. LIVER: No masses. Echotexture normal. LIVER VASCULATURE: Normal directional flow of the main portal vein and hepatic veins. GALLBLADDER: No stones. Normal wall thickness. No pericholecystic fluid. ULTRASOUND-DETECTED ROE'S SIGN: Negative. INTRAHEPATIC DUCTS AND COMMON DUCT: CBD and intrahepatic ducts normal caliber. No filling defects. INFERIOR VENA CAVA: Normal flow. AORTA: No aneurysm. RIGHT KIDNEY: Normal size. Normal echogenicity. No solid or suspicious masses. No hydronephrosis. No calcifications. PERITONEAL AND RIGHT PLEURAL SPACE: No ascites or effusions. OTHER: No other significant findings. IMPRESSION: NORMAL RIGHT UPPER QUADRANT ULTRASOUND. TECHNICAL DOCUMENTATION: JOB ID: [id number]- All Rights Reserved Reading location - IP/workstation name: [email or web address]
[2017-10-31] MEDS ORDERED: VANCOMYCIN HCL 500 MG in DEXTROSE 5%-WATER 100 ML IV SCH (16:00)
[2017-10-31] MEDS: OXYBUTYNIN CHLORIDE 5 MG TABLET PO SCH (17:11)
[2017-10-31] MEDS: PROMETHAZINE HCL INJ 25 MG/1 ML VIAL IV PRN (17:21)
[2017-10-31] MEDS ORDERED: OXYBUTYNIN CHLORIDE 5 MG TABLET PO SCH (18:00)
[2017-10-31 19:25] LABS: ANION GAP 14 (5-19); BLOOD UREA NITROGEN 95 mg/dL (7-20); CALCIUM 8.5 mg/dL (8.4-10.2); CARBON DIOXIDE 28 mmol/L (22-30); CHLORIDE 101 mmol/L (98-107); GLUCOSE 122 mg/dL (75-110); SODIUM 142.8 mmol/L (137-145)
[2017-10-31 19:37] LABS: POTASSIUM 4.6 mmol/L (3.6-5.0)
[2017-10-31] MEDS: DABIGATRAN ETEXILATE 75 MG CAPSULE PO SCH (21:29)
[2017-11-01] MEDS: NORMAL SALINE 1000 ML 1,000 ML IV PRN (03:40)
[2017-11-01] MEDS: PIPERACILLIN SODIUM/TAZOBACTAM 2.25 GM in NORMAL SALINE 50 ML IV SCH ×4 (05:46→23:24)
[2017-11-01 05:54] LABS: HEMATOCRIT 48.8 % (37.9-51.0); HEMOGLOBIN 16.5 g/dL (13.5-17.0); MEAN CORPUSCULAR HEMOGLOBIN 33.2 pg (27.0-33.4); MEAN CORPUSCULAR HGB CONC 33.8 g/dL (32.0-36.0); MEAN CORPUSCULAR VOLUME 98 fl (80-97); PLATELET COUNT 273 10^3/uL (150-450); RED BLOOD COUNT 4.96 10^6/uL (4.35-5.55); WHITE BLOOD COUNT 19.1 10^3/uL (4.0-10.5)
[2017-11-01 07:02] LABS: ANION GAP 13 (5-19); BLOOD UREA NITROGEN 87 mg/dL (7-20); CALCIUM 8.1 mg/dL (8.4-10.2); CARBON DIOXIDE 32 mmol/L (22-30); CHLORIDE 99 mmol/L (98-107); GLUCOSE 104 mg/dL (75-110)
[2017-11-01 07:26] LABS: POTASSIUM 2.5 mmol/L (3.6-5.0)
[2017-11-01] MEDS ORDERED: POTASSI CL 40 MEQ/NS 1L 1,000 ML IV PRN (08:21)
[2017-11-01] MEDS ORDERED: RINGERS SOLUTION,LACTATED 500 ML IV ONE (09:30)
[2017-11-01] MEDS: POLYETHYLENE GLYCOL 3350 POWDER 17 GM/1 PACKET PO SCH (10:31)
[2017-11-01] MEDS: DOCUSATE SODIUM 100 MG CAPSULE PO SCH (10:31)
[2017-11-01] MEDS: OXYBUTYNIN CHLORIDE 5 MG TABLET PO SCH ×2 (10:32→18:12)
[2017-11-01] MEDS: DABIGATRAN ETEXILATE 75 MG CAPSULE PO SCH ×2 (10:32→21:27)
[2017-11-01] MEDS: PROMETHAZINE HCL INJ 25 MG/1 ML VIAL IV PRN (10:43)
[2017-11-01] MEDS: DUTASTERIDE 0.5 MG CAPSULE PO SCH (10:53)
[2017-11-01 15:30] LABS: ALANINE AMINOTRANSFERASE 34 U/L (21-72); ALBUMIN 2.2 g/dL (3.5-5.0); ALKALINE PHOSPHATASE 91 U/L (38-126); ASPARTATE AMINO TRANSFERASE 42 U/L (17-59); BILIRUBIN,DIRECT 0.9 mg/dL (0.0-0.4); TOTAL PROTEIN 4.9 g/dL (6.3-8.2)
[2017-11-01 15:35] LABS: POTASSIUM 2.8 mmol/L (3.6-5.0)
[2017-11-01] MEDS ORDERED: LIDOCAINE 5% (700 MG) TRANSDERMAL ADH..PATCH TP ONE (16:00)
[2017-11-01] MEDS ORDERED: HYDROCORTISONE SOD SUCCINATE INJ/PF 100 MG/2 ML SDV IV ONE (16:00)
--- NOTE | 2017-11-01 16:25 | PROGRESS NOTE E ---
Progress Note NAME: DEJON ROBLERO : 1930 AGE: 87Y DATE: 11/01/2017 ROOM: 333 SUBJECTIVE: The patient is lying in bed. The patient is complaining of abdominal pain, in the same area right upper quadrant. The patient stated that this pain has not gotten worse, but yet has not gotten better since his gallbladder surgery. There have been no reported episodes of vomiting nor diarrhea. The patient is unable to provide much more history. He is quite a limited historian. The patient has been afebrile with blood pressures still remained marginal and the patient is unable to voice any specific concerns at this time. REVIEW OF SYSTEMS: The rest of review of systems is unobtainable given the patient's mental status. MEDICATIONS: Have been reviewed. OBJECTIVE: GENERAL: The patient is an 87-year-old who is awake, alert. He is not fully oriented. Does not appear to be distressed. VITAL SIGNS: Temperature is 97.6, pulse 64, respirations 16, blood pressure is 95/59, oxygen saturation is 97% on 3 liters nasal cannula. SKIN: Warm and dry. No rash. He is not diaphoretic. HEENT: Pupils are reactive. Conjunctivae are pink. NECK: There is no evidence of JVP. CARDIOVASCULAR: Heart is regular, no rub. CHEST: Clear, symmetrical, unlabored. ABDOMEN: Soft, nontender, nondistended. BACK: No CVA tenderness, sacral edema. EXTREMITIES: There is no edema. DIAGNOSTICS DATA: Lab values are as follows. Hematology obtained on 11/01/2017; WBC are 19.1, hemoglobin 16.5, hematocrit is 48.8, platelet count of 273,000. Chemistry obtained on 11/01/2017; sodium is 144, potassium 3.5, chloride is 99, carbon dioxide is 32, BUN 87, creatinine is 1.73, glucose 104, calcium is 8.1. Microbiology: Blood cultures obtained on 10/30/2017 revealed gram-negative rods. Urine culture obtained on 10/30/2017 revealed gram-negative rods. IMPRESSION AND PLAN: 1. GRAM-NEGATIVE KRIS URINARY TRACT INFECTION. Will continue Zosyn. The patient had a significant improvement in his mental status. Currently awaiting culture sensitivity. It appears the patient had an outpatient urine culture that was positive for Klebsiella and this was sensitive to this. Will follow. 2. GRAM-NEGATIVE KRIS BACTEREMIA. Most likely secondary to #1. Again we will await for culture and sensitivity and follow. 3. ACUTE KIDNEY INJURY. This has improved some with hydration. Will continue to gently hydrate, monitor for evidence of overload, and repeat chemistry in the a.m. and follow. 4. SEPSIS SECONDARY TO THE ABOVE. The patient has not required vasopressors, but has required a large amount of fluid resuscitation. Continue antibiotics and will await for culture and sensitivity. 5. HYPOTENSION. Part of the constellation of the sepsis. However, in looking back upon previous records the patient did have marginal blood pressures to begin with but it appears the patient has been acutely sick since 10/09/17, prior to his gallbladder surgery. Therefore, given the patient's critical illnesses may have exhausted his adrenal response. Will treat empirically for adrenal insufficiency and monitor blood pressures and follow. 6. RIGHT UPPER QUADRANT ABDOMINAL PAIN. This has been insistent and ongoing pain since the patient's surgery. The patient has had a right upper quadrant ultrasound which was unremarkable and previous CTs have also been unremarkable. The patient does not have a specific area of focal tenderness. He is able to tolerate examination. Therefore, will treat the area locally with a lidocaine patch and p.r.n. analgesia and monitor the patient. Will also add LFTs and his lipase was unremarkable. 7. CHRONIC CONSTIPATION. The patient has had bowel movements, continue cathartics. 8. HYPOKALEMIA. This has been repleted, corrected, and does require re-repletion. The patient currently is getting this IV. Will repeat the patient's chemistries and also schedule supplemental or potassium. CODE STATUS: The patient is a full code. DISPOSITION: Depending on the patient's symptomatology and diagnostic findings will reevaluate as needed. The patient may need transfer to the critical care unit. The patient's condition right now is guarded. Given the patient's ongoing declining health will ask palliative care for guidance in this man's care. TIME SPENT: On this visit, including assessment and plan, physical examination, patient education, review of records is 35 minutes. DICTATING PHYSICIAN: GERALD CARPENTER NP [id number] PHY#: [id number] ID: [id number] JOB#: [id number] ACCT: [id number] cc: > MTDD
[2017-11-01] MEDS ORDERED: POTASSIUM CHLORIDE 10 MEQ TABLET.SA PO ONE (16:30)
[2017-11-01] MEDS: POTASSI CL 40 MEQ/NS 1L 1,000 ML IV PRN (17:28)
[2017-11-01] MEDS: POTASSIUM CHLORIDE 10 MEQ TABLET.SA PO SCH (18:12)
[2017-11-01] MEDS: HYDROCORTISONE SOD SUCCINATE INJ/PF 100 MG/2 ML SDV IV SCH (21:27)
[2017-11-02 04:43] LABS: HEMATOCRIT 48.3 % (37.9-51.0); HEMOGLOBIN 16.2 g/dL (13.5-17.0); MEAN CORPUSCULAR HGB CONC 33.6 g/dL (32.0-36.0); MEAN CORPUSCULAR VOLUME 98 fl (80-97); PLATELET COUNT 300 10^3/uL (150-450); RED BLOOD COUNT 4.91 10^6/uL (4.35-5.55); RED CELL DISTRIBUTION WIDTH 14.3 % (11.5-14.0)
[2017-11-02 05:01] LABS: ANION GAP 12 (5-19); BLOOD UREA NITROGEN 79 mg/dL (7-20); CALCIUM 8.2 mg/dL (8.4-10.2); CARBON DIOXIDE 32 mmol/L (22-30); CHLORIDE 105 mmol/L (98-107); GLUCOSE 152 mg/dL (75-110); POTASSIUM 3.2 mmol/L (3.6-5.0); SODIUM 149.1 mmol/L (137-145)
[2017-11-02] MEDS: PIPERACILLIN SODIUM/TAZOBACTAM 2.25 GM in NORMAL SALINE 50 ML IV SCH ×3 (05:16→17:38)
[2017-11-02] MEDS: HYDROCORTISONE SOD SUCCINATE INJ/PF 100 MG/2 ML SDV IV SCH ×3 (05:16→21:19)
[2017-11-02] MEDS: POTASSI CL 40 MEQ/NS 1L 1,000 ML IV PRN ×2 (05:17→18:53)
[2017-11-02] MEDS ORDERED: ATROPINE SULFATE INJ 1 MG/1 ML VIAL IV ONE (06:00)
[2017-11-02] MEDS ORDERED: ATROPINE SULFATE INJ 1 MG/1 ML VIAL ONE (06:26)
--- NOTE | 2017-11-02 06:28 | EKG REPORT ---
SEVERITY:- ABNORMAL ECG - SINUS BRADYCARDIA WITH FIRST DEGREE AVB RIGHT BUNDLE BRANCH BLOCK OLD INFERIOR [facility] : Confirmed by: King Reynolds MD 02-Nov-2017 06:27:59
[2017-11-02] MEDS ORDERED: LIDOCAINE 5% (700 MG) TRANSDERMAL ADH..PATCH TP SCH (10:00)
--- NOTE | 2017-11-02 10:24 | RADIOLOGY REPORT (SQ) ---
EXAM DESCRIPTION: CT ABD/PELVIS NO ORAL OR IV COMPLETED DATE/TIME: 11/02/2017 10:07 am REASON FOR STUDY: abdominal pain COMPARISON: 10/09/2017 TECHNIQUE: CT scan of the abdomen and pelvis performed without intravenous or oral contrast. Images reviewed with lung, soft tissue, and bone windows. Reconstructed coronal and sagittal MPR images revi ewed. All images stored on PACS. All CT scanners at this facility use dose modulation, iterative reconstruction, and/or weight based d osing when appropriate to reduce radiation dose to as low as reasonably achievable (ALARA). [facility]: Dose Right [facility]: CareDose [facility]: Dose Right [facility]: Teradose 4D [facility]: [employer] RADIATION DOSE: CT Rad equipment meets quality standard of care and radiation dose reduction techniq ues were employed. CTDIvol: 8.6 mGy. DLP: 422 mGy-cm.mGy. LIMITATIONS: Motion. FINDINGS: LOWER CHEST: Go trace pleural effusions. Cardiomegaly. NON-CONTRASTED LIVER, SPLEEN, ADRENALS: Evaluation limited by lack of IV contrast. No identified sign ificant masses. PANCREAS: No masses. No peripancreatic inflammatory changes. GALLBLADDER: Surgically absent. RIGHT KIDNEY AND URETER: No suspicious masses. Assessment limited by lack of IV contrast. No signif icant calcifications. No hydronephrosis or hydroureter. LEFT KIDNEY AND URETER: No suspicious masses. Assessment limited by lack of IV contrast. No signifi cant calcifications. No hydronephrosis or hydroureter. AORTA AND RETROPERITONEUM: No aneurysm. IVC filter. BOWEL AND PERITONEAL CAVITY: Inflammatory changes right pericolic gutter adjacent to a segment of col on containing diverticula. No ascites or free air. APPENDIX: Not visualized.Go PELVIS, BLADDER, AND ABDOMINAL WALL:Farmer catheter in urinary bladder. BONES: No acute findings. OTHER: No other significant finding. IMPRESSION: Right-sided diverticulitis. COMMENT: Quality ID # [id number]: Final reports with documentation of one or more dose reduction techniques (e.g., Automated exposure control, adjustment of the mA and/or kV according to patient size, use of iterative reconstruction technique) TECHNICAL DOCUMENTATION: JOB ID: [id number] [employer]- All Rights Reserved Reading location - IP/workstation name: [facility]
--- NOTE | 2017-11-02 10:28 | PDOC PROGRESS REPORT ---
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; Patient also has a history of acute pancreatitis Last echocardiogram performed in 2013 showed diastolic dysfunction with preserved left ventricular function Since his admission in [facility] patient was noted to be bradycardic with a heart rate in the 30s and 40s It is noted that patient was on digoxin prior to his admission his dig level was 0.6-0.8 On physical examination today patient looks ill He is in a sinus bradycardia at 40-50 with left bundle branch block and first- degree AV block His blood pressure is maintained at 100/60 He looks extremely ill is not really answering questions appropriately Reason For Visit: HYPOVOLEMIA/MAINE AND UTI Physical Exam Vital Signs: Temp Pulse Resp BP Pulse Ox 97.4 F 54 L 16 111/71 92 11/02/17 07:31 11/02/17 07:31 11/02/17 07:31 11/02/17 07:31 11/02/17 07:31 Intake & Output 11/01/17 11/02/17 11/03/17 00:59 00:59 00:59 Intake Total 3512 3148 Output Total 1975 2850 300 Balance 1537 298 -300 Weight 61.6 kg 65 kg 69 kg Looks very ill Is pale thin Pupils are PERRLA extraocular motor intact Neck supple Heart regular rhythm bradycardia Lungs are clear The abdomen is extremely tender in the epigastric area Mild guarding diffuse mild rebound Extremities are intact neuro nonfocal Results Laboratory Results: 11/02/17 04:30 11/02/17 04:30 11/01/17 11/01/17 11/02/17 14:54 14:54 04:30 WBC 13.0 H RBC 4.91 Hgb 16.2 Hct 48.3 MCV 98 H MCH 33.0 MCHC 33.6 RDW 14.3 H Plt Count 300 Sodium Potassium 2.8 L* Chloride Carbon Dioxide Anion Gap BUN Creatinine Est GFR ( Amer) Est GFR (Non-Af Amer) Glucose Calcium Magnesium 2.6 H Total Bilirubin 1.0 AST 42 ALT 34 Alkaline Phosphatase 91 Total Protein 4.9 L Albumin 2.2 L TSH 11/02/17 11/02/17 04:30 04:30 WBC RBC Hgb Hct MCV MCH MCHC RDW Plt Count Sodium 149.1 H Potassium 3.2 L Chloride 105 Carbon Dioxide 32 H Anion Gap 12 BUN 79 H Creatinine 1.47 H Est GFR ( Amer) 55 L Est GFR (Non-Af Amer) 45 L Glucose 152 H Calcium 8.2 L Magnesium 2.6 H Total Bilirubin AST ALT Alkaline Phosphatase Total Protein Albumin TSH 0.10 L Impressions: Abdomen Ultrasound 10/31/17 00:00 IMPRESSION: NORMAL RIGHT UPPER QUADRANT ULTRASOUND. Chest X-Ray 10/31/17 00:00 IMPRESSION: 1. No acute pneumonic process identified. Renal Ultrasound 10/31/17 00:00 IMPRESSION: NORMAL RENAL ULTRASOUND. NO OBSTRUCTIVE UROPATHY. Assessment & Plan - Diagnosis (1) Bacteremia due to Klebsiella pneumoniae Is this a current diagnosis for this admission?: Yes (2) History of pancreatitis Is this a current diagnosis for this admission?: Yes (3) History of splenectomy Is this a current diagnosis for this admission?: Yes Plan: Increased susceptibility to encapsulated organisms (4) Chronic atrial fibrillation Is this a current diagnosis for this admission?: Yes (5) Chronic anticoagulation Is this a current diagnosis for this admission?: Yes Plan: Patient was anticoagulated with Pradaxa Pradaxa is on hold at this time as patient may need intervention (6) Dementia Qualifiers: Dementia type: Alzheimer's disease Is this a current diagnosis for this admission?: Yes (7) Acute renal failure Qualifiers: Acute renal failure type: unspecified Qualified Code(s): N17.9 - Acute kidney failure, unspecified Is this a current diagnosis for this admission?: Yes Plan: Likely secondary to hypovolemia renal ultrasound was normal (9) Acute kidney injury Is this a current diagnosis for this admission?: Yes Plan: Last echocardiogram in 2013 showed diastolic dysfunction and a preserved LVEF (10) UTI (urinary tract infection) Qualifiers: Urinary tract infection type: site unspecified Is this a current diagnosis for this admission?: Yes Plan: Positive for Klebsiella Klebsiella was pansensitive Continue Zosyn (11) Bradycardia Is this a current diagnosis for this admission?: Yes Plan: Patient has heart rates in 30s and 40s at times his blood pressure is still well maintained This bradycardia occurs in the context of sepsis We discussed the case with cardiology Dr. Mccracken feels that patient should be transferred to tertiary center - Time Time Spent with patient: This time with needs to be addressed is intra-abdominal sepsis UTI bacteremia Patient seems to have an extremely tender abdomen on palpation He very likely could have acute pancreatitis and/or other intra-abdominal issues ie abscesses Noted that patient is S/P splenectomy We did order CT abdomen and pelvis without contrast We will continue Zosyn for the time being Reevaluate patient for transfer later when there is more information regarding his abdominal pain and sepsis Continue to hold anticoagulation Time Spent with patient: 35 or more minutes
[2017-11-02 10:41] LABS: ALANINE AMINOTRANSFERASE 31 U/L (21-72); ALBUMIN 2.6 g/dL (3.5-5.0); ALKALINE PHOSPHATASE 107 U/L (38-126); ASPARTATE AMINO TRANSFERASE 46 U/L (17-59); BILIRUBIN,DIRECT 0.7 mg/dL (0.0-0.4); BILIRUBIN,TOTAL 0.7 mg/dL (0.2-1.3); LIPASE 39.4 U/L (23-300); TOTAL PROTEIN 5.9 g/dL (6.3-8.2)
[2017-11-02] MEDS: POTASSIUM CHLORIDE 10 MEQ TABLET.SA PO SCH ×2 (10:46→17:39)
[2017-11-02] MEDS: DABIGATRAN ETEXILATE 75 MG CAPSULE PO SCH (10:46)
[2017-11-02] MEDS: DOCUSATE SODIUM 100 MG CAPSULE PO SCH (10:47)
[2017-11-02] MEDS: DUTASTERIDE 0.5 MG CAPSULE PO SCH (10:47)
[2017-11-02] MEDS: SCOPOLAMINE HYDROBROMIDE 1.5 MG PATCH.TD72 TD SCH (10:54)
[2017-11-02] MEDS: POLYETHYLENE GLYCOL 3350 POWDER 17 GM/1 PACKET PO SCH (10:56)
--- NOTE | 2017-11-02 13:11 | PDOC CONSULTATION ---
Consultation Consult Date: 11/02/17 Attending physician:: REZA HERNANDEZ Consult reason:: Bradycardia History of Present Illness Admission Date/PCP: 10/31/17 00:43 SATISH ACOSTA Patient complains of: Abdominal pain History of Present Illness: DEJON ROBLERO is a 87 year old malewith reported history of dementia of Alzheimer's type, COPD (not sure if on home oxygen), CHF and atrial fib (not sure if anticoagulated) was admitted with above-mentioned complaints. Given the patient's mental status and the fact that very breif note was sent with him from SNF, most of the history was obtained from the ED physician/notes. According to the ED note, the patient was suspected to have UTI based on urinalysis done 2 days ago. The patient currently is denying any chest pain or shortness of breath or any cough. He complains of abdominal pain but he is unable to elaborate further. He was not sure if he was constipated and there was no report of any fever, nausea, vomiting or dysphagia. He said that he is able to ambulate using a cane. In the ED, his temperature was 98.3, heart rate 79, respiratory rate 21 (up to 31 so he was placed on 4 L oxygen via nasal cannula), blood pressure 83/60 with oxygen saturation of 95% on 4 L nasal cannula. His WBC was 24.6 and his hemoglobin was 18.4. His potassium was 2.8 and his BUN/creatinine was 102/2.29 (up from 49/1.06 on 10/09/2017). Lactic acid was 2.1. UA was positive. Chest x -ray is pending. He received 500 mL of both LR and NS x1. He also received 2 gm Cefepime x1 and 20 milliequivalent oral potassium 1 (since IV form is not available). This history obtained by the hospitalist was reviewed. This morning patient was noted to be severely bradycardic. In addition he was noted to be in some discomfort. I was asked to evaluate patient because of bradycardia. Even though his heart rate was in the 30s, patient was maintaining good blood pressure with it. His color and perfusion looked okay. Past Medical History Cardiac Medical History: Reports: Atrial Fibrillation, Congestive Heart Failure , Hyperlipidema Pulmonary Medical History: Reports: Chronic Obstructive Pulmonary Disease (COPD) Psychiatric Medical History: Denies: Depression Past Surgical History Past Surgical History: Reports: Other - Based on previous records. Social History Information Source: [facility] Records Lives with: Retirement Smoking Status: Former Smoker Cigarettes Packs Per Day: 0 - 1 pack a day for about 20 years. He quit 40 years ago. Frequency of Alcohol Use: None Hx Recreational Drug Use: No Drugs: None Hx Prescription Drug Abuse: No - Advance Directive Resuscitation Status: Full Code - Needs to be clarified. Family History Family History: Reviewed & Not Pertinent Parental Family History Reviewed: No Children Family History Reviewed: No Sibling(s) Family History Reviewed.: No Medication/Allergy Home Medications: Acetaminophen [Tylenol 325 mg Tablet] 650 mg PO Q6HP PRN 10/31/17 Albuterol Sulfate [Ventolin HFA MDI 18 GM] 2 puff IH Q6HP PRN 10/31/17 Dabigatran Etexilate Mesylate [Pradaxa] 75 mg PO Q12 10/31/17 Digoxin [Lanoxin 0.125 mg Tablet] 0.125 mg PO DAILY 10/31/17 Docusate Sodium [Colace 100 mg Capsule] 200 mg PO DAILY 10/31/17 Dutasteride [Avodart] 0.5 mg PO DAILY 10/31/17 Furosemide [Lasix 40 mg Tablet] 40 mg PO DAILY 10/31/17 Hydroxyzine HCl [Atarax 25 mg Tablet] 25 mg PO HSP PRN 10/31/17 Metolazone [Zaroxolyn 5 mg Tablet] 5 mg PO DAILY 10/31/17 Oxybutynin Chloride [Ditropan 5 mg Tablet] 5 mg PO BID 10/31/17 Polyethylene Glycol 3350 [Miralax Powder 17 gm/Packet] 17 gm PO DAILY 10/31/17 Allergies/Adverse Reactions: No Known Allergies Allergy (Verified 10/09/17 09:33) Review of Systems ROS unobtainable: Due to mental status Physical Exam Vital Signs: Temp Pulse Resp BP Pulse Ox 97.4 F 54 L 16 111/71 92 11/02/17 07:31 11/02/17 07:31 11/02/17 07:31 11/02/17 07:31 11/02/17 07:31 Intake & Output 11/01/17 11/02/17 11/03/17 06:59 06:59 06:59 Intake Total 4062 9693 Output Total 2250 2550 Balance 1812 -277 Weight 65 kg 69 kg Exam: GENERAL: well-nourished and in no acute distress. Alert and oriented x1 HEAD: Atraumatic, normocephalic. EYES: Pupils equal round and reactive to light, extraocular movements intact, sclera anicteric, conjunctiva are normal. ENT: TMs normal, nares patent, oropharynx clear without exudates. Moist mucous membranes. No oral ulcerations or bleeding gums noted NECK: supple without lymphadenopathy. Trachea is central. No cervical or axillary lymphadenopathy noted. Carotids are 2+, JVD WNL LUNGS: Respiration seems nonlabored, no significant accessory muscle action noted. Bibasilar fine crackles with few a scattered wheezes rales or rhonchi noted. No significant dullness noted on percussion. CHEST: Palpation of the chest wall shows no significant chest wall tenderness. HEART: [place] [employer], No PSH, 1/6 ASAD aortic area, 1/6 wong systolic murmur mitral area, no rubs, no gallops. ABDOMEN: Abdomen noted to be firm with tenderness noted in the left lower quadrant and also some generalized tenderness noted. bowel sounds decreased. EXTREMITIES: Pedal pulses are 1-2+, no calf tenderness noted. No clubbing or cyanosis. negative pedal edema noted NEUROLOGICAL: Focused neurological exam showed no significant neurologic deficit. Normal speech, no focal weakness appreciated. PSYCH: Normal mood, normal affect. Judgment and insight within normal limits. SKIN: No significant ecchymosis, skin is noted to be warm. MUSCULOSKELETAL EXAM: No significant acute joint swelling noted. Results Laboratory Results: 11/02/17 04:30 11/02/17 04:30 11/01/17 11/01/17 11/02/17 14:54 14:54 04:30 WBC 13.0 H RBC 4.91 Hgb 16.2 Hct 48.3 MCV 98 H MCH 33.0 MCHC 33.6 RDW 14.3 H Plt Count 300 Sodium Potassium 2.8 L* Chloride Carbon Dioxide Anion Gap BUN Creatinine Est GFR ( Amer) Est GFR (Non-Af Amer) Glucose Calcium Magnesium 2.6 H Total Bilirubin 1.0 AST 42 ALT 34 Alkaline Phosphatase 91 Total Protein 4.9 L Albumin 2.2 L Lipase TSH 11/02/17 11/02/17 11/02/17 04:30 04:30 04:30 WBC RBC Hgb Hct MCV MCH MCHC RDW Plt Count Sodium 149.1 H Potassium 3.2 L Chloride 105 Carbon Dioxide 32 H Anion Gap 12 BUN 79 H Creatinine 1.47 H Est GFR ( Amer) 55 L Est GFR (Non-Af Amer) 45 L Glucose 152 H Calcium 8.2 L Magnesium 2.6 H Total Bilirubin 0.7 AST 46 ALT 31 Alkaline Phosphatase 107 Total Protein 5.9 L Albumin 2.6 L Lipase 39.4 TSH 0.10 L EKG Comments: Sinus bradycardia with heart rate of about 40 bpm noted Impressions: Abdomen Ultrasound 10/31/17 00:00 IMPRESSION: NORMAL RIGHT UPPER QUADRANT ULTRASOUND. Chest X-Ray 10/31/17 00:00 IMPRESSION: 1. No acute pneumonic process identified. Renal Ultrasound 10/31/17 00:00 IMPRESSION: NORMAL RENAL ULTRASOUND. NO OBSTRUCTIVE UROPATHY. Abdomen/Pelvis CT 11/02/17 09:22 IMPRESSION: Right-sided diverticulitis. Assessment & Plan - Diagnosis (1) Bradycardia Is this a current diagnosis for this admission?: Yes (2) Chronic anticoagulation Is this a current diagnosis for this admission?: Yes (3) Sepsis Qualifiers: Sepsis type: sepsis due to unspecified organism Qualified Code(s): A41.9 - Sepsis, unspecified organism Is this a current diagnosis for this admission?: Yes (4) Bacteremia due to Klebsiella pneumoniae Is this a current diagnosis for this admission?: Yes (5) Hypotension Qualifiers: Hypotension type: unspecified hypotension type Qualified Code(s): I95.9 - Hypotension, unspecified Is this a current diagnosis for this admission?: Yes (6) UTI (urinary tract infection) Qualifiers: Urinary tract infection type: site unspecified Is this a current diagnosis for this admission?: Yes - Notes Notes: Bradycardia: Patient noted to have severe bradycardia. Difficult to assess because of underlying dementia with a symptomatic or not. Patient however maintaining vitals and perfusion. At this point, agree with IV atropine on as needed basis. May place pacing patches for transcutaneous pacing if needed. Will also start patient on the scopolamine patch. Will obtain free T3 free T4, TSH level and also a digoxin level since patient was on digoxin at home. It is very likely that patient has sick sinus syndrome. He does have a history of atrial fibrillation on chart review. Sepsis: Patient noted to have bacteremia and sepsis. Therefore there may be some relative contraindication for permanent pacing. Temporary pacing can be considered if needed, however at this point patient has a relatively few symptoms associated with bradycardia. Bacteremia due to Klebsiella pneumoniae: Continue antibiotic therapy. Hypotension: This has improved continue antibiotic therapy and IV fluid therapy. UTI secondary to urinary infection. Currently on antibiotic therapy. Abdominal pain: Patient for CT scan. Further plan after results of CT scan. Dementia: Patient has significant dementia. Patient also has a palliative consult. If patient ends up needing surgery, he will be considered a high-risk patient because of multiple comorbid problems being present. Recommend transfer to the unit for close follow-up. Apparently the unit here does not have a bed. Overall prognosis is guarded. - Time Time Spent: 30 to 50 Minutes Medications reviewed and adjusted accordingly: Yes
--- NOTE | 2017-11-02 13:24 | Progress Note ---
Provider Note Provider Note: CT abdomen and pelvis suggestive of acute diverticulitis We will add Flagyl to the Zosyn Continue present management We will hold Pradaxa
[2017-11-02 13:50] LABS: FREE T3 2.91 pg/mL (2.77-5.27); FREE T4 (FREE THYROXINE) 1.81 ng/dL (0.78-2.19)
[2017-11-02] MEDS: ATROPINE SULFATE INJ 1 MG/1 ML VIAL IV PRN ×2 (14:35→16:26)
[2017-11-02] MEDS: METRONIDAZOLE 500 MG/NS RTU 100 ML IV SCH ×2 (14:39→21:18)
--- NOTE | 2017-11-02 18:50 | XCELERA REPORT ---
[address] [address] Transthoracic Echocardiogram Report Name: DEJON ROBLERO Age: 87 yrs Gender: Male : 1930 Patient Status: Inpatient Patient Location: [address] [place] [address] Study Date: 11/02/2017 03:47 PM Height: 67 in Weight: 152 lb BSA: 1.8 m2 Procedure: A complete two-dimensional transthoracic echocardiogram was performed (2D, M-mode, spectral and color flow Doppler). The study was technically adequate with some images being suboptimal in quality. Reason For Study: Bradycardia, CHF Ordering Physician: SARAI LOTT Performed By: Kaelyn Tam Interpretation Summary LV EF is 50% Left ventricular systolic function is borderline reduced. Doppler measurements suggest pseudonormalized left ventricular relaxation, which is associated with grade II/IV or mild to moderate diastolic dysfunction The left ventricle is grossly normal size. Wall motion cannot be accurately commented on, but no definite regional wall motion abnormalities noted. The right ventricle is moderately dilated. The right ventricle appears to be hypertrophied The right ventricular systolic function is mild to moderately reduced. The right atrium is moderately dilated. The left atrial size is normal. There is a mild amount of mitral regurgitation There is no mitral valve stenosis. There is mild aortic stenosis No aortic regurgitation is present. There is a mild amount of tricuspid regurgitation There is moderate pulmonary hypertension by echo Right ventricular systolic pressure is estimated to be elevated at 40- 50mmHg. The aortic root is not well visualized but is probably normal size. The inferior vena cava appeared dilated and decreased < 50% with respiration (RAP 15-20 mmHg) There is no pericardial effusion. MMode/2D Measurements & Calculations RVDd: 4.3 cm LVIDd: 4.6 cm FS: 35.0 % Ao root diam: 3.2 cm IVSd: 0.86 cm LVIDs: 3.0 cm EDV(Teich): 96.4 ml LVPWd: 0.86 cm ESV(Teich): 34.3 ml Ao root area: 8.0 cm2 EF(Teich): 64.4 % Doppler Measurements & Calculations MV E max zheng: MV dec slope: Ao V2 max: LV V1 max P.2 cm/sec 77.6 cm/sec 1.5 mmHg MV A max zheng: 138.9 cm/sec2 Ao max PG: LV V1 max: 55.1 cm/sec MV dec time: 0.35 sec2.4 mmHg 61.7 cm/sec MV E/A: 0.89 PA V2 max: TR max zheng: 61.8 cm/sec 314.0 cm/sec PA max P.5 mmHgTR max P.4 mmHg Left Ventricle The left ventricle is grossly normal size. Left ventricular systolic function is borderline reduced. LV EF is 50%. Doppler measurements suggest pseudonormalized left ventricular relaxation, which is associated with grade II/IV or mild to moderate diastolic dysfunction. Wall motion cannot be accurately commented on, but no definite regional wall motion abnormalities noted. Right Ventricle The right ventricle is moderately dilated. The right ventricle appears to be hypertrophied. The right ventricular systolic function is mild to moderately reduced. Atria The right atrium is moderately dilated. The left atrial size is normal. Interarterial septum not well visualized and not well dopplered. Cannot comment on ASD/PFO presence. Mitral Valve The mitral valve is grossly normal. There is no mitral valve stenosis. There is a mild amount of mitral regurgitation. Aortic Valve The aortic valve is moderately calcified. There is mild aortic stenosis. No aortic regurgitation is present. Tricuspid Valve The tricuspid valve is not well visualized, but is grossly normal. There is no tricuspid stenosis. There is a mild amount of tricuspid regurgitation. There is moderate pulmonary hypertension by echo. Right ventricular systolic pressure is estimated to be elevated at 40-50mmHg. Pulmonic Valve The pulmonic valve is not well visualized. Great Vessels The aortic root is not well visualized but is probably normal size. The inferior vena cava appeared dilated and decreased < 50% with respiration (RAP 15-20 mmHg). Effusions There is no pericardial effusion. : SARAI LOTT > Sarai Lott
[2017-11-03] MEDS: PIPERACILLIN SODIUM/TAZOBACTAM 2.25 GM in NORMAL SALINE 50 ML IV SCH ×4 (00:37→17:38)
[2017-11-03] MEDS: ATROPINE SULFATE INJ 1 MG/1 ML VIAL IV PRN ×3 (02:10→12:10)
[2017-11-03] MEDS: METRONIDAZOLE 500 MG/NS RTU 100 ML IV SCH ×4 (02:15→21:21)
[2017-11-03] MEDS: HYDROCORTISONE SOD SUCCINATE INJ/PF 100 MG/2 ML SDV IV SCH ×3 (06:20→21:22)
[2017-11-03] MEDS: POLYETHYLENE GLYCOL 3350 POWDER 17 GM/1 PACKET PO SCH (09:29)
[2017-11-03] MEDS: DUTASTERIDE 0.5 MG CAPSULE PO SCH (09:31)
[2017-11-03] MEDS: POTASSIUM CHLORIDE 10 MEQ TABLET.SA PO SCH ×2 (09:31→17:38)
[2017-11-03] MEDS: DOCUSATE SODIUM 100 MG CAPSULE PO SCH (09:31)
--- NOTE | 2017-11-03 11:47 | PDOC PROGRESS REPORT ---
Subjective Progress Note for:: 11/03/17 Subjective:: Patient looks somewhat better. She is complaining of not feeling well and also complaining of diffuse abdominal discomfort. Patient had CT of the abdomen which showed acute diverticulitis. Patient has multitudes of other problems. Reason For Visit: HYPOVOLEMIA/MAINE AND UTI Physical Exam Vital Signs: Temp Pulse Resp BP Pulse Ox 97.2 F 62 20 135/78 H 83 L 11/03/17 11:07 11/03/17 11:07 11/03/17 11:07 11/03/17 11:07 11/03/17 11:07 Intake & Output 11/02/17 11/03/17 11/04/17 06:59 06:59 06:59 Intake Total 2273 2248 Output Total 2550 1250 Balance -277 998 Weight 69 kg 70 kg Exam: GENERAL: well-nourished and in no acute distress. Alert and oriented x1 HEAD: Atraumatic, normocephalic. EYES: Pupils equal round and reactive to light, extraocular movements intact, sclera anicteric, conjunctiva are normal. ENT: TMs normal, nares patent, oropharynx clear without exudates. Moist mucous membranes. No oral ulcerations or bleeding gums noted NECK: supple without lymphadenopathy. Trachea is central. No cervical or axillary lymphadenopathy noted. Carotids are 2+, JVD WNL LUNGS: Respiration seems nonlabored, no significant accessory muscle action noted. Bibasilar fine crackles are noted. No wheezes rales or rhonchi noted. No significant dullness noted on percussion. CHEST: Palpation of the chest wall shows no significant chest wall tenderness. HEART: Kyle VINEYARDIST, No PSH, 1/6 ASAD aortic area, 1/6 wong systolic murmur mitral area, no rubs, no gallops. ABDOMEN: Abdomen noted to be somewhat firm with lower abdominal tenderness. EXTREMITIES: Pedal pulses are 1-2+, no calf tenderness noted. No clubbing or cyanosis. negative pedal edema noted NEUROLOGICAL: Focused neurological exam showed no significant neurologic deficit. Normal speech, no focal weakness appreciated. PSYCH: Normal mood, normal affect. Judgment and insight not checked. SKIN: No significant ecchymosis, skin is noted to be warm. MUSCULOSKELETAL EXAM: No significant acute joint swelling noted. Results Laboratory Results: 11/02/17 04:30 11/02/17 04:30 11/02/17 04:30 Free T4 1.81 Free T3 pg/mL 2.91 EKG Comments: Telemetry strips shows sinus bradycardia with bundle branch block pattern Impressions: Abdomen Ultrasound 10/31/17 00:00 IMPRESSION: NORMAL RIGHT UPPER QUADRANT ULTRASOUND. Chest X-Ray 10/31/17 00:00 IMPRESSION: 1. No acute pneumonic process identified. Renal Ultrasound 10/31/17 00:00 IMPRESSION: NORMAL RENAL ULTRASOUND. NO OBSTRUCTIVE UROPATHY. Abdomen/Pelvis CT 11/02/17 09:22 IMPRESSION: Right-sided diverticulitis. Assessment & Plan - Diagnosis (1) Bradycardia Is this a current diagnosis for this admission?: Yes (2) Chronic anticoagulation Is this a current diagnosis for this admission?: Yes (3) Sepsis Qualifiers: Sepsis type: sepsis due to unspecified organism Qualified Code(s): A41.9 - Sepsis, unspecified organism Is this a current diagnosis for this admission?: Yes (4) Bacteremia due to Klebsiella pneumoniae Is this a current diagnosis for this admission?: Yes (5) Hypotension Qualifiers: Hypotension type: unspecified hypotension type Qualified Code(s): I95.9 - Hypotension, unspecified Is this a current diagnosis for this admission?: Yes (6) UTI (urinary tract infection) Qualifiers: Urinary tract infection type: site unspecified Is this a current diagnosis for this admission?: Yes - Notes Notes: Overall general condition has improved since yesterday. Bradycardia is less. Patient is somewhat more alert. However still critically sick. Bradycardia: Patient was noted to have severe bradycardia. Today still bradycardic but heart rate overall improved. Patient however maintaining vitals and perfusion. At this point, agree with IV atropine on as needed basis. May place pacing patches for transcutaneous pacing if needed. Will also start patient on the scopolamine patch. T3-T4 was WNL, digoxin level WNL. It is very likely that patient has sick sinus syndrome. He does have a history of atrial fibrillation on chart review. Sepsis: Patient noted to have bacteremia and sepsis. Continue with broad- spectrum antibiotic therapy. Bacteremia due to Klebsiella pneumoniae: Continue antibiotic therapy. Hypotension: This has improved continue antibiotic therapy and IV fluid therapy. UTI secondary to urinary infection. Currently on antibiotic therapy. Abdominal pain: [place] to be related to acute diverticulitis. Dementia: Patient has significant dementia. Patient also has a palliative consult. If patient ends up needing surgery, he will be considered a high-risk patient because of multiple comorbid problems being present. Recommend transfer to the unit for close follow-up. Apparently the unit here does not have a bed. Overall prognosis is guarded. - Time Time with patient: Greater than 35 minutes - CODE STATUS was discussed, patient remains full code. Surrogate decision-maker unchanged. Multiple medical problems were addressed. More than 50% of the time spent coordinating care, discussing management plans with involved caregivers. Management plans discussed with involved personnels. Medical decision making was of moderate to high complexity, patient's has multiple comorbidities. Medications reviewed and adjusted accordingly: Yes
[2017-11-03] MEDS: POTASSI CL 40 MEQ/NS 1L 1,000 ML IV PRN (12:13)
--- NOTE | 2017-11-03 14:10 | PDOC PROGRESS REPORT ---
Subjective Progress Note for:: 11/03/17 Subjective:: Patient admitted with abdominal pain and was also found to be bradycardic. He did receive IV atropine it appears during the night as yesterday but none today. He has transcutaneous pacing pads although has not needed this. He has been seen by cardiology with the tentative diagnosis of sick sinus syndrome in addition to his underlying atrial fibrillation. Patient was also septic Reason For Visit: HYPOVOLEMIA/MAINE AND UTI Physical Exam Vital Signs: Temp Pulse Resp BP Pulse Ox 97.2 F 85 18 135/78 H 95 11/03/17 11:07 11/03/17 12:54 11/03/17 12:54 11/03/17 11:07 11/03/17 12:54 Intake & Output 11/02/17 11/03/17 11/04/17 06:59 06:59 06:59 Intake Total 2273 2248 250 Output Total 2550 1250 400 Balance -277 998 -150 Weight 69 kg 70 kg General appearance: PRESENT: no acute distress, cooperative - Elderly and frail Head exam: PRESENT: atraumatic Neck exam: ABSENT: carotid bruit, JVD, lymphadenopathy, thyromegaly Respiratory exam: PRESENT: clear to auscultation radha. ABSENT: rales, rhonchi, wheezes Cardiovascular exam: PRESENT: +S1, +S2 Pulses: PRESENT: normal dorsalis pedis pul Vascular exam: PRESENT: normal capillary refill GI/Abdominal exam: PRESENT: normal bowel sounds, soft. ABSENT: distended, guarding, mass, organolmegaly, rebound, tenderness Extremities exam: PRESENT: full ROM. ABSENT: calf tenderness, clubbing, pedal edema Neurological exam: PRESENT: alert. ABSENT: oriented to person, oriented to place, oriented to time Results Laboratory Results: 11/02/17 04:30 11/02/17 04:30 Impressions: Abdomen Ultrasound 10/31/17 00:00 IMPRESSION: NORMAL RIGHT UPPER QUADRANT ULTRASOUND. Chest X-Ray 10/31/17 00:00 IMPRESSION: 1. No acute pneumonic process identified. Renal Ultrasound 10/31/17 00:00 IMPRESSION: NORMAL RENAL ULTRASOUND. NO OBSTRUCTIVE UROPATHY. Abdomen/Pelvis CT 11/02/17 09:22 IMPRESSION: Right-sided diverticulitis. Assessment & Plan - Time Time Spent with patient: 15-24 minutes Medications reviewed and adjusted accordingly: Yes Anticipated discharge: SNF - Inpatient Certification Medical Necessity: Need For Continuous Telemetry Monitoring, Need for IV Antibiotics - Plan Summary Plan Summary: 1.Sepsis likely secondary to UTI from Klebsiella pneumonia. Will continue on de -escalate antibiotics as appropriate. 2. Urinary tract infection secondary to Klebsiella 3. Severe bradycardia with underlying sick sinus syndrome and atrial fibrillation. Best course is probably medical management given this patient's comorbidities. 4. Dementia chronic 5. Acute diverticulitis patient is currently on appropriate antibiotics. Will de-escalate as needed 6. Hypotension which may be related to initial sepsis
[2017-11-03] MEDS: 1/2 NORMAL SALINE 1,000 ML IV PRN (15:12)
[2017-11-04] MEDS: PIPERACILLIN SODIUM/TAZOBACTAM 2.25 GM in NORMAL SALINE 50 ML IV SCH ×5 (00:48→23:17)
[2017-11-04] MEDS: METRONIDAZOLE 500 MG/NS RTU 100 ML IV SCH ×3 (02:11→15:32)
[2017-11-04] MEDS: ATROPINE SULFATE INJ 1 MG/1 ML VIAL IV PRN ×6 (02:12→23:16)
[2017-11-04] MEDS: HYDROCORTISONE SOD SUCCINATE INJ/PF 100 MG/2 ML SDV IV SCH ×3 (06:01→22:41)
[2017-11-04 06:16] LABS: ANION GAP 10 (5-19); BLOOD UREA NITROGEN 64 mg/dL (7-20); CALCIUM 8.7 mg/dL (8.4-10.2); CARBON DIOXIDE 31 mmol/L (22-30); CHLORIDE 112 mmol/L (98-107); GLUCOSE 142 mg/dL (75-110); POTASSIUM 3.3 mmol/L (3.6-5.0)
[2017-11-04 06:23] LABS: HEMATOCRIT 53.3 % (37.9-51.0); HEMOGLOBIN 17.6 g/dL (13.5-17.0); MEAN CORPUSCULAR HEMOGLOBIN 32.4 pg (27.0-33.4); MEAN CORPUSCULAR HGB CONC 33.1 g/dL (32.0-36.0); MEAN CORPUSCULAR VOLUME 98 fl (80-97); PLATELET COUNT 274 10^3/uL (150-450); RED BLOOD COUNT 5.44 10^6/uL (4.35-5.55); RED CELL DISTRIBUTION WIDTH 14.2 % (11.5-14.0); WHITE BLOOD COUNT 18.2 10^3/uL (4.0-10.5)
[2017-11-04 06:52] LABS: ABSOLUTE LYMPHOCYTES# (MANUAL) 1.5 10^3/uL (0.5-4.7); ABSOLUTE MONOCYTES # (MANUAL) 0.7 10^3/uL (0.1-1.4); BASOPHILS % (MANUAL) 0 % (0-2); EOSINOPHILS % (MANUAL) 0 % (0-6); LYMPHOCYTES % (MANUAL) 8 % (13-45); MONOCYTES % (MANUAL) 4 % (3-13); SEGMENTED NEUTROPHILS % (MAN) 88 % (42-78); TOTAL CELLS COUNTED 100
[2017-11-04 06:53] LABS: POIKILOCYTOSIS 1+
[2017-11-04 06:54] LABS: BURR CELLS SLIGHT; OVALOCYTES SLIGHT; PLATELET COMMENT ADEQUATE; TARGET CELLS SLIGHT
[2017-11-04] MEDS: DOCUSATE SODIUM 100 MG CAPSULE PO SCH (10:23)
[2017-11-04] MEDS: POLYETHYLENE GLYCOL 3350 POWDER 17 GM/1 PACKET PO SCH (10:23)
[2017-11-04] MEDS: DUTASTERIDE 0.5 MG CAPSULE PO SCH (10:27)
[2017-11-04] MEDS: POTASSIUM CHLORIDE 10 MEQ TABLET.SA PO SCH ×2 (10:27→17:18)
[2017-11-04] MEDS: 1/2 NORMAL SALINE 1,000 ML IV PRN (10:33)
--- NOTE | 2017-11-04 15:49 | PDOC PROGRESS REPORT ---
Subjective Progress Note for:: 11/04/17 Subjective:: Patient admitted with abdominal pain and was also found to be bradycardic. He did receive IV atropine it appears during the night as yesterday but none today. He has transcutaneous pacing pads although has not needed this. He has been seen by cardiology with the tentative diagnosis of sick sinus syndrome in addition to his underlying atrial fibrillation. Patient was also septic Reason For Visit: HYPOVOLEMIA/MAINE AND UTI Physical Exam Vital Signs: Temp Pulse Resp BP Pulse Ox 97.2 F 55 L 24 H 135/74 H 92 11/04/17 11:18 11/04/17 14:00 11/04/17 11:18 11/04/17 11:18 11/04/17 11:18 Intake & Output 11/03/17 11/04/17 11/05/17 06:59 06:59 06:59 Intake Total 2248 3098 946 Output Total 1250 1243 600 Balance 998 1855 346 Weight 70 kg 71.4 kg General appearance: PRESENT: no acute distress, thin - Elderly and frail Head exam: PRESENT: atraumatic Eye exam: PRESENT: conjunctiva pink, EOMI, PERRLA. ABSENT: scleral icterus Ear exam: PRESENT: normal external ear exam Neck exam: ABSENT: carotid bruit, JVD, lymphadenopathy, thyromegaly Cardiovascular exam: PRESENT: bradycardia GI/Abdominal exam: PRESENT: normal bowel sounds, soft. ABSENT: distended, guarding, mass, organolmegaly, rebound, tenderness Rectal exam: PRESENT: deferred Neurological exam: PRESENT: alert. ABSENT: oriented to person, oriented to place, oriented to time, oriented to situation Results Laboratory Results: 11/04/17 05:28 11/04/17 05:28 11/04/17 11/04/17 05:28 05:28 WBC 18.2 H RBC 5.44 Hgb 17.6 H Hct 53.3 H MCV 98 H MCH 32.4 MCHC 33.1 RDW 14.2 H Plt Count 274 Seg Neutrophils % Not Reportable Lymphocytes % Not Reportable Monocytes % Not Reportable Eosinophils % Not Reportable Basophils % Not Reportable Absolute Neutrophils Not Reportable Absolute Lymphocytes Not Reportable Absolute Monocytes Not Reportable Absolute Eosinophils Not Reportable Absolute Basophils Not Reportable Sodium 153.0 H Potassium 3.3 L Chloride 112 H Carbon Dioxide 31 H Anion Gap 10 BUN 64 H Creatinine 1.07 Est GFR ( Amer) > 60 Est GFR (Non-Af Amer) > 60 Glucose 142 H Calcium 8.7 Impressions: Abdomen Ultrasound 10/31/17 00:00 IMPRESSION: NORMAL RIGHT UPPER QUADRANT ULTRASOUND. Chest X-Ray 10/31/17 00:00 IMPRESSION: 1. No acute pneumonic process identified. Renal Ultrasound 10/31/17 00:00 IMPRESSION: NORMAL RENAL ULTRASOUND. NO OBSTRUCTIVE UROPATHY. Abdomen/Pelvis CT 11/02/17 09:22 IMPRESSION: Right-sided diverticulitis. Assessment & Plan - Time Time Spent with patient: Less than 15 minutes Medications reviewed and adjusted accordingly: Yes Anticipated discharge: SNF - Plan Summary Plan Summary: 1.Sepsis likely secondary to UTI from Klebsiella pneumonia. Will continue on de -escalate antibiotics as appropriate. DCFlagyl 2. Urinary tract infection secondary to Klebsiella 3. Severe bradycardia with underlying sick sinus syndrome and atrial fibrillation. Continue medical management 4. Dementia chronic 5. Acute diverticulitis patient is currently on appropriate antibiotics. Zosyn should be adequate for coverage. 6. Hypotension which may be related to initial sepsis 7. Hypernatremic dehydration- Hypotonic IVF
[2017-11-04] MEDS: DEXTROSE 5%-1/4 NORMAL SALINE 1,000 ML IV PRN (16:25)
--- NOTE | 2017-11-04 17:25 | Progress Note ---
Provider Note Provider Note: ID Consult Note Asked to review patient's chart by Pharmacy. Patient not seen or examined. Reviewed VS, labs, imaging reports, provider notes. Mr. willett is a 87 yo man with pmh including dementia, COPD, CHF, and AF who was sent from his SNF to the hospital for suspected UTI. He had abdominal pain, leukocytosis to around 25k, hemoconcentration, hypotension, and acute kidney injury when he presented. He was found to have Klebsiella pneumoniae in blood cultures and urine culture. His CXR was negative for evidence of pneumonia. Renal U/S was not remarkable. CT of the abdomen and pelvis without oral or IV contrast on 11/02/17 was read as showing findings compatible with right-sided diverticulitis. His antibiotic therapy was Zosyn plus Flagyl. Impression/Recommendations 1. sepsis due to Klebsiella pneumoniae bacteremia from complicated UTI 2. diverticulitis - The patient has been treated with Zosyn plus Flagyl. The Klebsiella pneumoniae isolate in the patient's blood and urine is wong-susceptible, except for ampicillin, for which all K. pneumoniae are intrinsically resistant. The concomitant diagnosis of diverticulitis limits de-escalation, since he would need to continue empiric antibiotic therapy aimed at having broad activity against most enteric GNRs and anaerobes. For this purpose, I would recommend either continuing Zosyn alone or treating the patient with Rocephin plus Flagyl. I do not think there is a need to continue Flagyl on top of Zosyn, since Zosyn has very good anaerobic activity. - Duration of therapy is typically in the range of 7-14 days for diverticulitis and also for GNR bacteremia (depending upon the source). I would favor treating the patient for 10 days in total with Zosyn or equivalent antibiotics (such as Rocephin plus Flagyl, if this is chosen, or Cipro plus Flagyl if an oral option is desired). Varun Cam MD [facility] Infectious Diseases pager [phone]
--- NOTE | 2017-11-04 23:15 | Progress Note ---
Provider Note Provider Note: Palliative Care Note Appreciate palliative care consult request for this 87 year old man who admitted from [facility] for sepsis due to UTI, bradycardia, altered mental status ( history of Alzheimers dementia) and COPD. He has also been found to have diverticular disease which is causing his pain in abdomen and being treated with antibiotics as well as UTI treatment. I have attempted to see this faina and talk with family memers several times in the last three days. Faina is usally asleep, awakens easily and says he is "terrible" but doesnt identify where he is hurting, what is making him feel bad or othre complaints. He talks very little and does not know where he is when asked. I did not get an answer when I attempted to call his son who lives in [place]. I would like to discuss his wishes for patients advance directives or code status. Patient is not able to discuss anything with me. I will continue to try to reach patients son for clarification of goals and code status.
[2017-11-05] MEDS: ATROPINE SULFATE INJ 1 MG/1 ML VIAL IV PRN ×6 (01:19→23:29)
[2017-11-05] MEDS: DEXTROSE 5%-1/4 NORMAL SALINE 1,000 ML IV PRN ×2 (04:25→16:05)
[2017-11-05 06:26] LABS: ANION GAP 10 (5-19); BLOOD UREA NITROGEN 50 mg/dL (7-20); CALCIUM 8.4 mg/dL (8.4-10.2); CARBON DIOXIDE 33 mmol/L (22-30); CHLORIDE 110 mmol/L (98-107); GLUCOSE 158 mg/dL (75-110); SODIUM 152.6 mmol/L (137-145)
[2017-11-05 06:34] LABS: POTASSIUM 2.6 mmol/L (3.6-5.0)
[2017-11-05] MEDS: HYDROCORTISONE SOD SUCCINATE INJ/PF 100 MG/2 ML SDV IV SCH ×3 (06:37→21:25)
[2017-11-05] MEDS: PIPERACILLIN SODIUM/TAZOBACTAM 2.25 GM in NORMAL SALINE 50 ML IV SCH ×4 (06:37→23:27)
[2017-11-05] MEDS: HYDROCODONE/ACETAMINOPHEN 10-325 MG TABLET PO PRN (06:40)
[2017-11-05] MEDS ORDERED: POTASSIUM CHLORIDE 20 MEQ/50 ML RTU IV SCH (08:00)
[2017-11-05] MEDS ORDERED: HYDROXYZINE PAMOATE 25 MG CAPSULE PO PRN (08:01)
[2017-11-05] MEDS ORDERED: POTASSIUM CHLORIDE 10 MEQ TABLET.SA PO ONE (09:30)
[2017-11-05] MEDS: DUTASTERIDE 0.5 MG CAPSULE PO SCH (10:25)
[2017-11-05] MEDS: POLYETHYLENE GLYCOL 3350 POWDER 17 GM/1 PACKET PO SCH (10:25)
[2017-11-05] MEDS: DOCUSATE SODIUM 100 MG CAPSULE PO SCH (10:25)
[2017-11-05] MEDS: SCOPOLAMINE HYDROBROMIDE 1.5 MG PATCH.TD72 TD SCH (10:26)
[2017-11-05] MEDS: POTASSIUM CHLORIDE 10 MEQ TABLET.SA PO SCH (10:42)
--- NOTE | 2017-11-05 14:44 | PDOC PROGRESS REPORT ---
Subjective Progress Note for:: 11/05/17 Subjective:: Patient admitted with abdominal pain and was also found to be bradycardic. He did receive IV atropine it appears during the night as yesterday but none today. He has transcutaneous pacing pads although has not needed this. He has been seen by cardiology with the tentative diagnosis of sick sinus syndrome in addition to his underlying atrial fibrillation. Patient was also septic Reason For Visit: HYPOVOLEMIA/MAINE AND UTI Physical Exam Vital Signs: Temp Pulse Resp BP Pulse Ox 97.4 F 44 L 18 141/71 H 94 11/05/17 09:06 11/05/17 13:57 11/05/17 11:07 11/05/17 09:06 11/05/17 11:07 Intake & Output 11/04/17 11/05/17 11/06/17 06:59 06:59 06:59 Intake Total 3098 3113 50 Output Total 1243 1750 900 Balance 1855 1363 -850 Weight 71.4 kg 71.5 kg General appearance: PRESENT: no acute distress, thin, other - Elderly and frail Eye exam: PRESENT: conjunctival injection Respiratory exam: PRESENT: clear to auscultation radha. ABSENT: rales, rhonchi, wheezes Cardiovascular exam: PRESENT: +S1, +S2 Pulses: PRESENT: normal dorsalis pedis pul GI/Abdominal exam: PRESENT: normal bowel sounds, soft. ABSENT: distended, guarding, mass, organolmegaly, rebound, tenderness Rectal exam: PRESENT: deferred Extremities exam: PRESENT: full ROM. ABSENT: calf tenderness, clubbing, pedal edema Neurological exam: PRESENT: altered - But arousable. ABSENT: oriented to person , oriented to place, oriented to time Results Laboratory Results: 11/04/17 05:28 11/05/17 05:33 11/05/17 11/05/17 05:33 08:43 Sodium 152.6 H Potassium 2.6 L* Chloride 110 H Carbon Dioxide 33 H Anion Gap 10 BUN 50 H Creatinine 0.91 Est GFR ( Amer) > 60 Est GFR (Non-Af Amer) > 60 Glucose 158 H Calcium 8.4 Magnesium 2.3 Impressions: Abdomen Ultrasound 10/31/17 00:00 IMPRESSION: NORMAL RIGHT UPPER QUADRANT ULTRASOUND. Chest X-Ray 10/31/17 00:00 IMPRESSION: 1. No acute pneumonic process identified. Renal Ultrasound 10/31/17 00:00 IMPRESSION: NORMAL RENAL ULTRASOUND. NO OBSTRUCTIVE UROPATHY. Abdomen/Pelvis CT 11/02/17 09:22 IMPRESSION: Right-sided diverticulitis. Assessment & Plan - Time Time Spent with patient: 15-24 minutes Medications reviewed and adjusted accordingly: Yes Anticipated discharge: SNF - Plan Summary Plan Summary: 1.Sepsis likely secondary to UTI from Klebsiella pneumonia. Flagyl was dc 11/04 2. Urinary tract infection secondary to Klebsiella. Complet 7 day course of antibiotics 3. Severe bradycardia with underlying sick sinus syndrome and atrial fibrillation. Continue medical management No other intervention planned 4. Dementia chronic 5. Acute diverticulitis patient is currently on Zosyn should be adequate for coverage. 6. Hypotension which may be related to initial sepsis. resolved 7. Hypernatremic dehydration- Hypotonic IVF 8. Patient remains a full code. His condition is very poor and prognosis is poor #9 hypokalemia-we will replace
--- NOTE | 2017-11-05 15:12 | Palliative Consultation Report ---
Consultation From:: SNEHA RAMOS Consult Reason: Bradycardia - HPI HPI: Appreciate Palliative care consult for this 87 year old man who was admitted from [facility] with abd pain and is being treated for diverticulitis. He also has had many episodes of bradycardia during this admission requiring atropine and has had cardiology consult. He has multiple other comorbid conditions including Dementia COPD, CHF. His dementia is so severe he cannot make decisions for himself. Family has been struggling with code status decisions. Patient is getting some better, but still is having some bradycardia and is sleeping almost all of the time. Mr. Willett again tells me he is "terrible" today but he cannot verbalize why he feels terrible. I did speak with his son on telephone today and he is going to review Mr. Callahan Living will document that they have at home. RN caring for patient had discussed this with patients DIL earlier today. Mr. willett is agreeable to talk with me about the Living will and the patients condition, but he wants his to be present and she will be at work until six PM and they have not yet reviewed Mr. Callahan living will. Onset: Just prior to arrival Onset/Duration: Gradual - Unable to relate type of location of pain or other symptoms Past Medical History(Consults) - General Information Source: Patient, Relative, [facility] Records Home Medications: Acetaminophen [Tylenol 325 mg Tablet] 650 mg PO Q6HP PRN 10/31/17 Albuterol Sulfate [Ventolin HFA MDI 18 GM] 2 puff IH Q6HP PRN 10/31/17 Dabigatran Etexilate Mesylate [Pradaxa] 75 mg PO Q12 10/31/17 Digoxin [Lanoxin 0.125 mg Tablet] 0.125 mg PO DAILY 10/31/17 Docusate Sodium [Colace 100 mg Capsule] 200 mg PO DAILY 10/31/17 Dutasteride [Avodart] 0.5 mg PO DAILY 10/31/17 Furosemide [Lasix 40 mg Tablet] 40 mg PO DAILY 10/31/17 Hydroxyzine HCl [Atarax 25 mg Tablet] 25 mg PO HSP PRN 10/31/17 Metolazone [Zaroxolyn 5 mg Tablet] 5 mg PO DAILY 10/31/17 Oxybutynin Chloride [Ditropan 5 mg Tablet] 5 mg PO BID 10/31/17 Polyethylene Glycol 3350 [Miralax Powder 17 gm/Packet] 17 gm PO DAILY 10/31/17 Allergies/Adverse Reactions: No Known Allergies Allergy (Verified 10/09/17 09:33) - Social History Lives with: Retirement Family History: Reviewed & Not Pertinent Parental Family History Reviewed: No Children Family History Reviewed: No Sibling(s) Family History Reviewed.: No Smoking Status: Former Smoker Cigarettes Packs Per Day: 0 - 1 pack a day for about 20 years. He quit 40 years ago. Frequency of Alcohol Use: None Hx Recreational Drug Use: No Drugs: None Hx Prescription Drug Abuse: No - Past Medical History Cardiac Medical History: Reports: Hx Atrial Fibrillation, Hx Congestive Heart Failure, Hx Hypercholesterolemia Pulmonary Medical History: Reports: Hx COPD Renal/ Medical History: Denies: Hx Peritoneal Dialysis Psychiatric Medical History: Reports: Hx Dementia Denies: Hx Depression - Surgical History Past Surgical History: Reports: Hx Abdominal Surgery - ostomy, splenectomy, Hx Cardiac Surgery - filter, Other - Based on previous records. Review of systems ROS unobtainable: due to mental statu Ojective:Exam Vital Signs: Temp Pulse Resp BP Pulse Ox 97.4 F 44 L 18 141/71 H 94 11/05/17 09:06 11/05/17 13:57 11/05/17 11:07 11/05/17 09:06 11/05/17 11:07 Intake & Output 11/04/17 11/05/17 11/06/17 06:59 06:59 06:59 Intake Total 3098 3113 50 Output Total 1243 1750 900 Balance 1855 1363 -850 Weight 71.4 kg 71.5 kg - General General Appearance: Lethargic - sleeps most of the time, awakens but canot continue conversation more than a few sentences. Very weak and frail in appearance - Neck Neck: Normal - Respiratory Respiratory Status: No respiratory distress Breath sounds: Rhonchi - Cardiovascular Rhythm: Bradycardia - Abdominal Distension: No distension Tenderness: Tender - Neurological Cognition: Inattentive, Short term memory loss - History dementia Orientation: Oriented to person Speech: Normal - Psychological Associated symptoms: Excessive sleeping Objective-Diagnostic Laboratory: 11/04/17 05:28 11/05/17 05:33 11/05/17 11/05/17 05:33 08:43 Sodium 152.6 H Potassium 2.6 L* Chloride 110 H Carbon Dioxide 33 H Anion Gap 10 BUN 50 H Creatinine 0.91 Est GFR ( Amer) > 60 Est GFR (Non-Af Amer) > 60 Glucose 158 H Calcium 8.4 Magnesium 2.3 Plan and Recommendation Plan and Recommendation: Spoke with patients son as above. I told him I would be happy to meet with him tomorrow after about 2 PM to discuss fathers living will, condition and care options given his current decline. I also gave him my cell phone number and told him that I would be happy to talk with them tonight if he and his have questions while reading the living will. Will follow. - Time Spent with Patient Time spent with patient: 15 to 30 Minutes Time: 30 min
[2017-11-05] MEDS ORDERED: POTASSIUM CHLORIDE 20 MEQ/15 ML UDCUP PO SCH (18:00)
[2017-11-06] MEDS: ATROPINE SULFATE INJ 1 MG/1 ML VIAL IV PRN (00:57)
[2017-11-06] MEDS ORDERED: PROMETHAZINE HCL 25 MG TABLET PO PRN (01:38)
[2017-11-06] MEDS: DEXTROSE 5%-1/4 NORMAL SALINE 1,000 ML IV PRN (03:41)
[2017-11-06] MEDS: HYDROCORTISONE SOD SUCCINATE INJ/PF 100 MG/2 ML SDV IV SCH (06:18)
[2017-11-06] MEDS: PIPERACILLIN SODIUM/TAZOBACTAM 2.25 GM in NORMAL SALINE 50 ML IV SCH ×3 (06:18→17:38)
[2017-11-06 06:25] LABS: HEMATOCRIT 54.5 % (37.9-51.0); HEMOGLOBIN 18.3 g/dL (13.5-17.0); MEAN CORPUSCULAR HEMOGLOBIN 32.8 pg (27.0-33.4); MEAN CORPUSCULAR HGB CONC 33.5 g/dL (32.0-36.0); MEAN CORPUSCULAR VOLUME 98 fl (80-97); PLATELET COUNT 250 10^3/uL (150-450); RED BLOOD COUNT 5.58 10^6/uL (4.35-5.55); RED CELL DISTRIBUTION WIDTH 14.3 % (11.5-14.0)
[2017-11-06 06:38] LABS: ANION GAP 11 (5-19); BLOOD UREA NITROGEN 42 mg/dL (7-20); CALCIUM 8.1 mg/dL (8.4-10.2); CARBON DIOXIDE 33 mmol/L (22-30); CHLORIDE 105 mmol/L (98-107); GLUCOSE 149 mg/dL (75-110); SODIUM 149.2 mmol/L (137-145)
[2017-11-06 07:55] LABS: ABSOLUTE LYMPHOCYTES# (MANUAL) 1.7 10^3/uL (0.5-4.7); ABSOLUTE NEUTROPHILS# (MANUAL) 21.4 10^3/uL (1.7-8.2); BASOPHILS % (MANUAL) 0 % (0-2); EOSINOPHILS % (MANUAL) 0 % (0-6); LYMPHOCYTES % (MANUAL) 7 % (13-45); MONOCYTES % (MANUAL) 4 % (3-13); PLATELET COMMENT ADEQUATE; RBC MORPHOLOGY COMMENT NORMO-CYTIC/CHROMIC; SEGMENTED NEUTROPHILS % (MAN) 89 % (42-78); TOTAL CELLS COUNTED 100; TOXIC GRANULATION 1+; TOXIC VACUOLATION PRESENT
[2017-11-06] MEDS: POTASSI CL 20 MEQ/D5-1/4NS 1L 1,000 ML IV PRN ×2 (08:41→17:37)
[2017-11-06] MEDS: DOCUSATE SODIUM 100 MG CAPSULE PO SCH (08:46)
[2017-11-06] MEDS: DUTASTERIDE 0.5 MG CAPSULE PO SCH (08:46)
[2017-11-06] MEDS: HYDROCODONE/ACETAMINOPHEN 10-325 MG TABLET PO PRN (08:46)
[2017-11-06] MEDS: POLYETHYLENE GLYCOL 3350 POWDER 17 GM/1 PACKET PO SCH (08:48)
--- NOTE | 2017-11-06 08:51 | Progress Note ---
Provider Note Provider Note: Palliative care note: I spoke with Justa Hardin over the telephone at 8:30 this Am. She reports that she and her brought patietns living will into the hospital last night and they are in agreement that patient should have DNR order. Her telephone number is [phone]. SHe states she has been in to feed patietn and he is only eating a few bites and does not seem to have any pleasure in it. We discussed his current quality of life and she recognizes that he does not seem to have much quality. I did tell her that the question may arise of pacemaker if he continues to have the bradycardia to let her discuss it with her , the patient's son. Mrs. Hardin says they stil have five days a Premier on patients Medicare days and then they will apply for Medicaid. We discussed [facility] for comfort care, but she wants to keep him closer to them so they can visit often. She said she or her will call if they have further questions. Patients Living Will should be on his chart for physician to review and write DNR order today, Will follow.
--- NOTE | 2017-11-06 09:38 | PDOC PROGRESS REPORT ---
Subjective Progress Note for:: 11/04/17 Subjective:: Patient looks somewhat better. Patient is still complaining of abdominal discomfort abdominal discomfort. Patient had CT of the abdomen which showed acute diverticulitis. Patient has multitudes of other problems. Heart rate noted to be more stable. Blood pressure is more stable. Reason For Visit: HYPOVOLEMIA/MAINE AND UTI Physical Exam Vital Signs: Temp Pulse Resp BP Pulse Ox 97.2 F 57 L 20 111/61 93 11/04/17 15:38 11/04/17 16:50 11/04/17 16:50 11/04/17 15:38 11/04/17 16:50 Intake & Output 11/03/17 11/04/17 11/05/17 06:59 06:59 06:59 Intake Total 2248 3098 1913 Output Total 1250 1243 800 Balance 998 1855 1113 Weight 70 kg 71.4 kg Exam: GENERAL: well-nourished and in no acute distress. Alert and oriented x2 HEAD: Atraumatic, normocephalic. EYES: Pupils equal round and reactive to light, extraocular movements intact, sclera anicteric, conjunctiva are normal. ENT: TMs normal, nares patent, oropharynx clear without exudates. Moist mucous membranes. No oral ulcerations or bleeding gums noted NECK: supple without lymphadenopathy. Trachea is central. No cervical or axillary lymphadenopathy noted. Carotids are 2+, JVD WNL LUNGS: Respiration seems nonlabored, no significant accessory muscle action noted. Bibasilar fine crackles are noted. No wheezes rales or rhonchi noted. No significant dullness noted on percussion. CHEST: Palpation of the chest wall shows no significant chest wall tenderness. 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 ABDOMEN: Abdomen noted to be somewhat softer with lower abdominal tenderness.BS +ve EXTREMITIES: Pedal pulses are 1-2+, no calf tenderness noted. No clubbing or cyanosis. negative pedal edema noted NEUROLOGICAL: Focused neurological exam showed no significant neurologic deficit. Normal speech, no focal weakness appreciated. PSYCH: Normal mood, normal affect. Judgment and insight not checked. SKIN: No significant ecchymosis, skin is noted to be warm. MUSCULOSKELETAL EXAM: No significant acute joint swelling noted. Results Laboratory Results: 11/04/17 05:28 11/04/17 05:28 11/04/17 11/04/17 05:28 05:28 WBC 18.2 H RBC 5.44 Hgb 17.6 H Hct 53.3 H MCV 98 H MCH 32.4 MCHC 33.1 RDW 14.2 H Plt Count 274 Seg Neutrophils % Not Reportable Lymphocytes % Not Reportable Monocytes % Not Reportable Eosinophils % Not Reportable Basophils % Not Reportable Absolute Neutrophils Not Reportable Absolute Lymphocytes Not Reportable Absolute Monocytes Not Reportable Absolute Eosinophils Not Reportable Absolute Basophils Not Reportable Sodium 153.0 H Potassium 3.3 L Chloride 112 H Carbon Dioxide 31 H Anion Gap 10 BUN 64 H Creatinine 1.07 Est GFR ( Amer) > 60 Est GFR (Non-Af Amer) > 60 Glucose 142 H Calcium 8.7 Impressions: Abdomen Ultrasound 10/31/17 00:00 IMPRESSION: NORMAL RIGHT UPPER QUADRANT ULTRASOUND. Chest X-Ray 10/31/17 00:00 IMPRESSION: 1. No acute pneumonic process identified. Renal Ultrasound 10/31/17 00:00 IMPRESSION: NORMAL RENAL ULTRASOUND. NO OBSTRUCTIVE UROPATHY. Abdomen/Pelvis CT 11/02/17 09:22 IMPRESSION: Right-sided diverticulitis. Assessment & Plan - Diagnosis (1) Bradycardia Is this a current diagnosis for this admission?: Yes (2) Chronic anticoagulation Is this a current diagnosis for this admission?: Yes (3) Sepsis Qualifiers: Sepsis type: sepsis due to unspecified organism Qualified Code(s): A41.9 - Sepsis, unspecified organism Is this a current diagnosis for this admission?: Yes (4) Bacteremia due to Klebsiella pneumoniae Is this a current diagnosis for this admission?: Yes (5) Hypotension Qualifiers: Hypotension type: unspecified hypotension type Qualified Code(s): I95.9 - Hypotension, unspecified Is this a current diagnosis for this admission?: Yes (6) UTI (urinary tract infection) Qualifiers: Urinary tract infection type: site unspecified Is this a current diagnosis for this admission?: Yes - Notes Notes: Bradycardia: Patient was noted to still have bradycardia. Today still bradycardic but heart rate overall improved. Patient however maintaining vitals and perfusion. At this point, agree with IV atropine on as needed basis. May place pacing patches for transcutaneous pacing if needed. Will also start patient on the scopolamine patch. T3-T4 was WNL, digoxin level WNL. It is very likely that patient has sick sinus syndrome. He does have a history of atrial fibrillation on chart review. Sepsis: Patient noted to have bacteremia and sepsis. Continue with broad- spectrum antibiotic therapy. Bacteremia due to Klebsiella pneumoniae: Continue antibiotic therapy. Hypotension: This has improved continue antibiotic therapy and IV fluid therapy. UTI secondary to urinary infection. Currently on antibiotic therapy. Abdominal pain: [place] to be related to acute diverticulitis. Dementia: Patient has significant dementia. Patient also has a palliative consult. If patient ends up needing surgery, he will be considered a high-risk patient because of multiple comorbid problems being present. Overall prognosis is guarded. - Time Time with patient: 15-25 minutes Medications reviewed and adjusted accordingly: Yes
--- NOTE | 2017-11-06 13:35 | PDOC PROGRESS REPORT ---
Subjective Progress Note for:: 11/06/17 Subjective:: Patient admitted with abdominal pain and was also found to be bradycardic. He did receive IV atropine it appears during the night as yesterday but none today. He has transcutaneous pacing pads although has not needed this. He has been seen by cardiology with the tentative diagnosis of sick sinus syndrome in addition to his underlying atrial fibrillation. Patient was also septic Palliative care notes reviewed. I agree with DNR as per living will. Will discuss further on Changing to comfort care which is appropriate for this patient Reason For Visit: HYPOVOLEMIA/MAINE AND UTI Physical Exam Vital Signs: Temp Pulse Resp BP Pulse Ox 97.4 F 52 L 20 136/72 H 91 L 11/06/17 06:58 11/06/17 06:58 11/06/17 06:58 11/06/17 06:58 11/06/17 06:58 Intake & Output 11/05/17 11/06/17 11/07/17 06:59 06:59 06:59 Intake Total 3113 2591 40 Output Total 1750 2175 300 Balance 1363 416 -260 Weight 71.5 kg 71.3 kg General appearance: PRESENT: no acute distress, thin - elderly and frail Head exam: PRESENT: atraumatic, normocephalic Eye exam: ABSENT: scleral icterus Mouth exam: PRESENT: moist, tongue midline Respiratory exam: PRESENT: decreased breath sounds. ABSENT: rales, wheezes Cardiovascular exam: PRESENT: RRR. ABSENT: diastolic murmur, rubs, systolic murmur Vascular exam: PRESENT: normal capillary refill GI/Abdominal exam: PRESENT: normal bowel sounds, soft. ABSENT: distended, guarding, mass, organolmegaly, rebound, tenderness Rectal exam: PRESENT: deferred Extremities exam: PRESENT: calf tenderness. ABSENT: clubbing, pedal edema Neurological exam: PRESENT: other - intermittently awake, unable to follow any instructions Psychiatric exam: PRESENT: homicidal ideation Skin exam: PRESENT: cyanosis, warm. ABSENT: rash Results Laboratory Results: 11/06/17 06:07 11/06/17 06:07 11/06/17 11/06/17 06:07 06:07 WBC 24.0 H RBC 5.58 H Hgb 18.3 H Hct 54.5 H MCV 98 H MCH 32.8 MCHC 33.5 RDW 14.3 H Plt Count 250 Seg Neutrophils % Not Reportable Lymphocytes % Not Reportable Monocytes % Not Reportable Eosinophils % Not Reportable Basophils % Not Reportable Absolute Neutrophils Not Reportable Absolute Lymphocytes Not Reportable Absolute Monocytes Not Reportable Absolute Eosinophils Not Reportable Absolute Basophils Not Reportable Sodium 149.2 H Potassium 3.0 L* Chloride 105 Carbon Dioxide 33 H Anion Gap 11 BUN 42 H Creatinine 0.81 Est GFR ( Amer) > 60 Est GFR (Non-Af Amer) > 60 Glucose 149 H Calcium 8.1 L Impressions: Abdomen Ultrasound 10/31/17 00:00 IMPRESSION: NORMAL RIGHT UPPER QUADRANT ULTRASOUND. Chest X-Ray 10/31/17 00:00 IMPRESSION: 1. No acute pneumonic process identified. Renal Ultrasound 10/31/17 00:00 IMPRESSION: NORMAL RENAL ULTRASOUND. NO OBSTRUCTIVE UROPATHY. Abdomen/Pelvis CT 11/02/17 09:22 IMPRESSION: Right-sided diverticulitis. Assessment & Plan - Time Time Spent with patient: 15-24 minutes Medications reviewed and adjusted accordingly: Yes Anticipated discharge: SNF - Inpatient Certification Based on my medical assessment, after consideration of the patient's comorbidities, presenting symptoms, or acuity I expect that the services needed warrant INPATIENT care.: Yes Medical Necessity: Risk of Complication if Not Cared For in Hospital - Plan Summary Plan Summary: 1.Sepsis likely secondary to UTI from Klebsiella pneumonia. Off Flagyl since 2. Urinary tract infection secondary to Klebsiella. Completed 7 day course of antibiotics 3. Severe bradycardia with underlying sick sinus syndrome and atrial fibrillation. Continue medical management No other intervention planned. He is bed bound and asymptomatic 4. Dementia chronic 5. Acute diverticulitis patient is currently on Zosyn till 11/07 should be adequate for coverage. 6. Hypotension which may be related to initial sepsis. resolved 7. Hypernatremic dehydration- Cont Hypotonic IVF 8. Patient now DNR His condition is very poor and prognosis is poor 9. hypokalemia-Continue to replace
[2017-11-06] MEDS ORDERED: POTASSIUM CHLORIDE 20 MEQ/15 ML UDCUP PO SCH (14:00)
[2017-11-06] MEDS ORDERED: HYDROCORTISONE SOD SUCCINATE INJ/PF 100 MG/2 ML SDV IV SCH (14:00)
--- NOTE | 2017-11-06 18:21 | Progress Note ---
Provider Note Provider Note: Extensive discussion with family via Palliative care and Nursing staff. Family hgas agreed to comfort measures. Orders written
[2017-11-06] MEDS ORDERED: LORAZEPAM INJ 2 MG/1 ML VIAL IV PRN (18:28)
[2017-11-06] MEDS: MORPHINE SULFATE 10 MG/ML INJ IV PRN (20:16)
--- NOTE | 2017-11-06 20:44 | PDOC PROGRESS REPORT ---
Subjective Progress Note for:: 11/06/17 Subjective:: Patient looks somewhat better. Patient today was noted to be comfortable but was difficult to arouse. I was told by the nurse that she has just gotten pain medication. Patient remains bradycardic and intermittently heart rate has been noted to drop below 40 but no objective signs of hypoperfusion are being noted with severe bradycardia on the monitor. I am told that some bradycardia has been happening when patient is also awake. Patient had CT of the abdomen which showed acute diverticulitis. Patient has multitudes of other problems. Heart rate noted to be more stable. Blood pressure is more stable. I was made aware by the nurses that patient now DNR and a meeting has been scheduled with the family members to make him comfort care. Reason For Visit: HYPOVOLEMIA/MAINE AND UTI Physical Exam Vital Signs: Temp Pulse Resp BP Pulse Ox 97.2 F 58 L 22 H 136/78 H 93 11/06/17 19:41 11/06/17 19:41 11/06/17 19:41 11/06/17 19:41 11/06/17 19:41 Intake & Output 11/05/17 11/06/17 11/07/17 06:59 06:59 06:59 Intake Total 3113 2591 1090 Output Total 1750 2175 650 Balance 1363 416 440 Weight 71.5 kg 71.3 kg Exam: GENERAL: well-nourished and in no acute distress. Orientation is difficult to check because patient is barely arousable. HEAD: Atraumatic, normocephalic. EYES: Pupils equal round and reactive to light, extraocular movements intact, sclera anicteric, conjunctiva are normal. ENT: TMs normal, nares patent, oropharynx clear without exudates. Moist mucous membranes. No oral ulcerations or bleeding gums noted NECK: supple without lymphadenopathy or JVD. Trachea is central. No cervical or axillary lymphadenopathy noted. Carotids are 2+ LUNGS: Breath sounds bibasilar fine crackles at bases. No significant dullness noted. CHEST: Palpation of chest wall shows no significant chest wall tenderness. 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 ABDOMEN: Soft, no significant tenderness appreciated, normoactive bowel sounds. No guarding, no rebound. No rigidity noted . No masses appreciated. EXTREMITIES: Pedal pulses are 1-2+, no calf tenderness noted, Trace + pedal edema noted. No clubbing or cyanosis. NEUROLOGICAL: Patient is alert but is not able to participate in neurological exam because of patient's current mental status PSYCH: Patient cannot participate in a neurologic and psych exam because of the patient's current mental status SKIN: No significant ecchymosis, rash, ulcerations or signs of pruritus noted. MUSCULOSKELETAL EXAM: No significant joint swelling noted. Results Laboratory Results: 11/06/17 06:07 11/06/17 06:07 11/06/17 11/06/17 06:07 06:07 WBC 24.0 H RBC 5.58 H Hgb 18.3 H Hct 54.5 H MCV 98 H MCH 32.8 MCHC 33.5 RDW 14.3 H Plt Count 250 Seg Neutrophils % Not Reportable Lymphocytes % Not Reportable Monocytes % Not Reportable Eosinophils % Not Reportable Basophils % Not Reportable Absolute Neutrophils Not Reportable Absolute Lymphocytes Not Reportable Absolute Monocytes Not Reportable Absolute Eosinophils Not Reportable Absolute Basophils Not Reportable Sodium 149.2 H Potassium 3.0 L* Chloride 105 Carbon Dioxide 33 H Anion Gap 11 BUN 42 H Creatinine 0.81 Est GFR ( Amer) > 60 Est GFR (Non-Af Amer) > 60 Glucose 149 H Calcium 8.1 L EKG Comments: Telemetry shows marked intermittent bradycardia Impressions: Abdomen Ultrasound 10/31/17 00:00 IMPRESSION: NORMAL RIGHT UPPER QUADRANT ULTRASOUND. Chest X-Ray 10/31/17 00:00 IMPRESSION: 1. No acute pneumonic process identified. Renal Ultrasound 10/31/17 00:00 IMPRESSION: NORMAL RENAL ULTRASOUND. NO OBSTRUCTIVE UROPATHY. Abdomen/Pelvis CT 11/02/17 09:22 IMPRESSION: Right-sided diverticulitis. Assessment & Plan - Diagnosis (1) Bradycardia Is this a current diagnosis for this admission?: Yes (2) Chronic anticoagulation Is this a current diagnosis for this admission?: Yes (3) Sepsis Qualifiers: Sepsis type: sepsis due to unspecified organism Qualified Code(s): A41.9 - Sepsis, unspecified organism Is this a current diagnosis for this admission?: Yes (4) Bacteremia due to Klebsiella pneumoniae Is this a current diagnosis for this admission?: Yes (5) Hypotension Qualifiers: Hypotension type: unspecified hypotension type Qualified Code(s): I95.9 - Hypotension, unspecified Is this a current diagnosis for this admission?: Yes (6) UTI (urinary tract infection) Qualifiers: Urinary tract infection type: site unspecified Is this a current diagnosis for this admission?: Yes - Notes Notes: Bradycardia: Patient was noted to still have bradycardia. Currently on a scopolamine patch and as needed IV atropine. Difficult to correlate with symptoms but overall prognosis is guarded. Sepsis: Patient was noted to have bacteremia and sepsis. Continue with broad- spectrum antibiotic therapy. Bacteremia due to Klebsiella pneumoniae: Continue antibiotic therapy. Hypotension: This has improved continue antibiotic therapy and IV fluid therapy. UTI secondary to urinary infection. Currently on antibiotic therapy. Abdominal pain: [place] to be related to acute diverticulitis. Dementia: Patient has significant dementia. Patient also has a palliative consult. Plan would be to try discuss DNR and comfort care. In the meantime continue supportive care. - Time Time with patient: Greater than 35 minutes - CODE STATUS : was discussed, patient remains DO NOT RESUSCITATE. Surrogate decision-maker unchanged. Multiple medical problems were addressed. More than 50% of the time spent coordinating care, discussing management plans with involved caregivers. Management plans discussed with involved personnels. Medical decision making was of moderate to high complexity, patient's has multiple comorbidities. Medications reviewed and adjusted accordingly: Yes
--- NOTE | 2017-11-06 20:47 | PDOC PROGRESS REPORT ---
Subjective Progress Note for:: 11/05/17 Subjective:: Patient looks somewhat better. Patient remains bradycardic and intermittently heart rate has been noted to drop below 40 but no objective signs of hypoperfusion are being noted with severe bradycardia on the monitor. I am told that some bradycardia has been happening when patient is also awake. Patient had CT of the abdomen which showed acute diverticulitis. Patient has multitudes of other problems. Blood pressure is more stable. Patient currently a DNR. Reason For Visit: HYPOVOLEMIA/MAINE AND UTI Physical Exam Vital Signs: Temp Pulse Resp BP Pulse Ox 97.1 F 53 L 18 137/79 H 94 11/05/17 15:18 11/05/17 16:10 11/05/17 16:10 11/05/17 15:18 11/05/17 16:10 Intake & Output 11/04/17 11/05/17 11/06/17 06:59 06:59 06:59 Intake Total 3098 3113 1191 Output Total 1243 1750 1300 Balance 1855 1363 -109 Weight 71.4 kg 71.5 kg Exam: GENERAL: well-nourished and in no acute distress. Alert and oriented x2 HEAD: Atraumatic, normocephalic. EYES: Pupils equal round and reactive to light, extraocular movements intact, sclera anicteric, conjunctiva are normal. ENT: TMs normal, nares patent, oropharynx clear without exudates. Moist mucous membranes. No oral ulcerations or bleeding gums noted NECK: supple without lymphadenopathy. Trachea is central. No cervical or axillary lymphadenopathy noted. Carotids are 2+, JVD WNL LUNGS: Respiration seems nonlabored, no significant accessory muscle action noted. Bibasilar fine crackles are noted. No wheezes rales or rhonchi noted. No significant dullness noted on percussion. CHEST: Palpation of the chest wall shows no significant chest wall tenderness. 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 ABDOMEN: Abdomen noted to be somewhat softer with lower abdominal tenderness. BS +ve EXTREMITIES: Pedal pulses are 1-2+, no calf tenderness noted. No clubbing or cyanosis. negative pedal edema noted NEUROLOGICAL: Focused neurological exam showed no significant neurologic deficit. Normal speech, no focal weakness appreciated. PSYCH: Normal mood, normal affect. Judgment and insight not checked. SKIN: No significant ecchymosis, skin is noted to be warm. MUSCULOSKELETAL EXAM: No significant acute joint swelling noted. Results Laboratory Results: 11/04/17 05:28 11/05/17 05:33 11/05/17 11/05/17 05:33 08:43 Sodium 152.6 H Potassium 2.6 L* Chloride 110 H Carbon Dioxide 33 H Anion Gap 10 BUN 50 H Creatinine 0.91 Est GFR ( Amer) > 60 Est GFR (Non-Af Amer) > 60 Glucose 158 H Calcium 8.4 Magnesium 2.3 EKG Comments: Intermittent severe bradycardia with heart rate dipping below 40 at times. Otherwise staying in the high 40s to low 50 range. Impressions: Abdomen Ultrasound 10/31/17 00:00 IMPRESSION: NORMAL RIGHT UPPER QUADRANT ULTRASOUND. Chest X-Ray 10/31/17 00:00 IMPRESSION: 1. No acute pneumonic process identified. Renal Ultrasound 10/31/17 00:00 IMPRESSION: NORMAL RENAL ULTRASOUND. NO OBSTRUCTIVE UROPATHY. Abdomen/Pelvis CT 11/02/17 09:22 IMPRESSION: Right-sided diverticulitis. Assessment & Plan - Diagnosis (1) Bradycardia Is this a current diagnosis for this admission?: Yes (2) Chronic anticoagulation Is this a current diagnosis for this admission?: Yes (3) Sepsis Qualifiers: Sepsis type: sepsis due to unspecified organism Qualified Code(s): A41.9 - Sepsis, unspecified organism Is this a current diagnosis for this admission?: Yes (4) Bacteremia due to Klebsiella pneumoniae Is this a current diagnosis for this admission?: Yes (5) Hypotension Qualifiers: Hypotension type: unspecified hypotension type Qualified Code(s): I95.9 - Hypotension, unspecified Is this a current diagnosis for this admission?: Yes (6) UTI (urinary tract infection) Qualifiers: Urinary tract infection type: site unspecified Is this a current diagnosis for this admission?: Yes - Notes Notes: Bradycardia: Patient was noted to still have bradycardia. Seems somewhat improved. Currently on a scopolamine patch and intermittent IV atropine. Sepsis: Patient noted to have bacteremia and sepsis. Continue with broad- spectrum antibiotic therapy. Bacteremia due to Klebsiella pneumoniae: Continue antibiotic therapy. Hypotension: This has improved continue antibiotic therapy and IV fluid therapy. UTI secondary to urinary infection. Currently on antibiotic therapy. Abdominal pain: [place] to be related to acute diverticulitis. Dementia: Patient has significant dementia. Patient also has a palliative consult. If patient ends up needing surgery, he will be considered a high-risk patient because of multiple comorbid problems being present. Overall prognosis is guarded. - Time Time with patient: Greater than 35 minutes - CODE STATUS was discussed, patient remains DNR. Surrogate decision-maker unchanged. Multiple medical problems were addressed. More than 50% of the time spent coordinating care, discussing management plans with involved caregivers. Management plans discussed with involved personnels. Medical decision making was of moderate to high complexity , patient's has multiple comorbidities. Medications reviewed and adjusted accordingly: Yes
--- NOTE | 2017-11-06 23:42 | Progress Note ---
Provider Note Provider Note: Palliative Care Note 11/06/17 3:15 PM Follow up [facility] patient and his son and IVY who are visiting. I have spoken with them on the phone several times. They have brought patients Living Will into the hospital and the patient now is DNR with comfort measures.only. Family would like for patient to have hospice on discharge, however, IVY tells me he has about five more days of Medicare covered SNF care . I explained to her that if they use those "rehab" days, Medicare will not pay for hospice care. We discussed possibility of hospice care center, but family wants to keep him local to visit. On my arrival to room, the roofing sales representative from [facility] was talking with family, so perhaps they can work out a means of providing hospice after discharge. I told the IVY that with this being a Thursday and the decline patient has shown, there may not be a need for transfer as patient may while in hospital. Mr. Hardin is looking less alert today and is very mary in color. He is not eating and is not speaking much. Respirations are unlabored but he has head tilted back instead of forward as is his usual posture.. Heart rate is in 50's with scopalamine TD patch in place. Skin warm and dry . He is not frowning or moaning, does not appear to be having pain. Emotional support given to family and I encouraged them to call me with any questions or problems. I appreciate good care patient is receiving here.
[2017-11-07] MEDS: MORPHINE SULFATE 10 MG/ML INJ IV PRN ×3 (00:39→09:45)
--- NOTE | 2017-11-07 14:30 | PDOC PROGRESS REPORT ---
Subjective Progress Note for:: 11/07/17 Subjective:: Patient admitted with abdominal pain and was also found to be bradycardic. He did receive IV atropine it appears during the night as yesterday but none today. He has transcutaneous pacing pads although has not needed this. He has been seen by cardiology with the tentative diagnosis of sick sinus syndrome in addition to his underlying atrial fibrillation. Patient was also septic Patient is now comfort care Reason For Visit: HYPOVOLEMIA/MAINE AND UTI Physical Exam Vital Signs: Temp Pulse Resp BP Pulse Ox 97.2 F 85 17 143/84 H 91 L 11/07/17 07:29 11/07/17 07:29 11/07/17 07:29 11/07/17 07:29 11/07/17 07:29 Intake & Output 11/06/17 11/07/17 11/08/17 06:59 06:59 06:59 Intake Total 2591 1100 Output Total 2175 1350 400 Balance 416 -250 -400 Weight 71.3 kg 71.6 kg General appearance: PRESENT: no acute distress Head exam: PRESENT: normocephalic Eye exam: PRESENT: conjunctiva pink. ABSENT: scleral icterus Respiratory exam: PRESENT: decreased breath sounds, rhonchi, unlabored Cardiovascular exam: PRESENT: RRR - intermittent bradycardia, +S1, +S2 GI/Abdominal exam: PRESENT: normal bowel sounds, soft. ABSENT: distended, guarding, mass, organolmegaly, rebound, tenderness Rectal exam: PRESENT: deferred Neurological exam: PRESENT: altered, other - confused Results Laboratory Results: 11/06/17 06:07 11/06/17 06:07 Impressions: Abdomen Ultrasound 10/31/17 00:00 IMPRESSION: NORMAL RIGHT UPPER QUADRANT ULTRASOUND. Chest X-Ray 10/31/17 00:00 IMPRESSION: 1. No acute pneumonic process identified. Renal Ultrasound 10/31/17 00:00 IMPRESSION: NORMAL RENAL ULTRASOUND. NO OBSTRUCTIVE UROPATHY. Abdomen/Pelvis CT 11/02/17 09:22 IMPRESSION: Right-sided diverticulitis. Assessment & Plan - Time Time Spent with patient: Less than 15 minutes Medications reviewed and adjusted accordingly: Yes Anticipated discharge: Hospice - Inpatient Certification Based on my medical assessment, after consideration of the patient's comorbidities, presenting symptoms, or acuity I expect that the services needed warrant INPATIENT care.: Yes Medical Necessity: Other - Awaiting hospice facility - Plan Summary Plan Summary: 1.Sepsis likely secondary to UTI from Klebsiella pneumonia. 2. Urinary tract infection secondary to Klebsiella. 3. Severe bradycardia with underlying sick sinus syndrome and atrial fibrillation. 4. Dementia chronic 5. Acute diverticulitis 6. Hypotension wresolved 7. Hypernatremic dehydration- 8. Patient now DNR and comfort care 9. hypokalemia-replaced Awaiting transfer to hospice
[2017-11-08] MEDS: SCOPOLAMINE HYDROBROMIDE 1.5 MG PATCH.TD72 TD SCH (10:18)
--- NOTE | 2017-11-08 15:50 | PDOC PROGRESS REPORT ---
Subjective Progress Note for:: 11/08/17 Subjective:: Patient admitted with abdominal pain and was also found to be bradycardic. He did receive IV atropine it appears during the night as yesterday but none today. He has transcutaneous pacing pads although has not needed this. He has been seen by cardiology with the tentative diagnosis of sick sinus syndrome in addition to his underlying atrial fibrillation. Patient was also septic Patient remains comfort care Reason For Visit: HYPOVOLEMIA/MAINE AND UTI Physical Exam Vital Signs: Temp Pulse Resp BP Pulse Ox 97.4 F 59 L 15 139/88 H 100 11/08/17 07:41 11/08/17 07:41 11/08/17 07:41 11/08/17 07:41 11/08/17 07:41 Intake & Output 11/07/17 11/08/17 11/09/17 06:59 06:59 06:59 Intake Total 1100 13 236 Output Total 1350 1150 175 Balance -250 -1137 61 Weight 71.6 kg 70.4 kg General appearance: PRESENT: no acute distress Head exam: PRESENT: atraumatic Respiratory exam: PRESENT: crackles, rales, rhonchi Cardiovascular exam: PRESENT: irregular rhythm GI/Abdominal exam: PRESENT: normal bowel sounds, soft. ABSENT: distended, guarding, mass, organolmegaly, rebound, tenderness Neurological exam: PRESENT: alert, awake. ABSENT: oriented to person, oriented to place, oriented to time Results Laboratory Results: 11/06/17 06:07 11/06/17 06:07 Impressions: Abdomen Ultrasound 10/31/17 00:00 IMPRESSION: NORMAL RIGHT UPPER QUADRANT ULTRASOUND. Chest X-Ray 10/31/17 00:00 IMPRESSION: 1. No acute pneumonic process identified. Renal Ultrasound 10/31/17 00:00 IMPRESSION: NORMAL RENAL ULTRASOUND. NO OBSTRUCTIVE UROPATHY. Abdomen/Pelvis CT 11/02/17 09:22 IMPRESSION: Right-sided diverticulitis. Assessment & Plan - Time Time Spent with patient: Less than 15 minutes Medications reviewed and adjusted accordingly: Yes Anticipated discharge: Hospice Within: within 48 hours - Plan Summary Plan Summary: 1.Sepsis likely secondary to UTI from Klebsiella pneumonia. 2. Urinary tract infection secondary to Klebsiella. 3. Severe bradycardia with underlying sick sinus syndrome and atrial fibrillation. 4. Dementia chronic 5. Diverticulitis 6. Hypotension resolved 7. Hypernatremic dehydration- 8. Patient is DNR and comfort care 9. hypokalemia-replaced Awaiting transfer to hospice
--- NOTE | 2017-11-09 14:47 | PDOC PROGRESS REPORT ---
Subjective Progress Note for:: 11/09/17 Subjective:: Patient admitted with abdominal pain and was also found to be bradycardic. He did receive IV atropine it appears during the night as yesterday but none today. He has transcutaneous pacing pads although has not needed this. He has been seen by cardiology with the tentative diagnosis of sick sinus syndrome in addition to his underlying atrial fibrillation. Patient was also septic Patient remains comfort care however I had a long talk with daughter in law today. They were concerned about the fact that patient apparently improved after being made comfort care and it appears they were second guessing themselves. I explained that patient is comfort care for long-term prognosis which remains very poor despite what may happen in the short-term. I explained that I think comfort care is appropriate and she seemed to understand my point. All questions were answered. They are supposed to talk to discharge plan as well as the hospice nurse today and have encouraged him to continue to think about patient's best long-term interest. She did inquire about starting him on antibiotics however he has been treated with 7 days of Zosyn and Flagyl and at this time no further antibiotics are needed Reason For Visit: HYPOVOLEMIA/MAINE AND UTI Physical Exam Vital Signs: Temp Pulse Resp BP Pulse Ox 97.9 F 65 16 126/76 H 95 11/09/17 08:08 11/09/17 08:08 11/09/17 08:08 11/09/17 08:08 11/09/17 08:08 Intake & Output 11/08/17 11/09/17 11/10/17 06:59 06:59 06:59 Intake Total 131 964 Output Total 1550 775 Balance -1419 189 Weight 70.4 kg 73.4 kg General appearance: PRESENT: no acute distress, thin - Elderly and frail Head exam: PRESENT: atraumatic Eye exam: PRESENT: conjunctiva pink, EOMI, PERRLA. ABSENT: scleral icterus Mouth exam: PRESENT: tongue midline - Occasionally cyanotic Cardiovascular exam: PRESENT: irregular rhythm, +S1, +S2 GI/Abdominal exam: PRESENT: normal bowel sounds, soft. ABSENT: distended, guarding, mass, organolmegaly, rebound, tenderness Neurological exam: PRESENT: alert, awake, other - Confused Results Laboratory Results: 11/06/17 06:07 11/06/17 06:07 Impressions: Abdomen Ultrasound 10/31/17 00:00 IMPRESSION: NORMAL RIGHT UPPER QUADRANT ULTRASOUND. Chest X-Ray 10/31/17 00:00 IMPRESSION: 1. No acute pneumonic process identified. Renal Ultrasound 10/31/17 00:00 IMPRESSION: NORMAL RENAL ULTRASOUND. NO OBSTRUCTIVE UROPATHY. Abdomen/Pelvis CT 11/02/17 09:22 IMPRESSION: Right-sided diverticulitis. Assessment & Plan - Time Time Spent with patient: 25-34 minutes - Including discussion with family Anticipated discharge: Hospice Within: within 48 hours, when bed available - Inpatient Certification Based on my medical assessment, after consideration of the patient's comorbidities, presenting symptoms, or acuity I expect that the services needed warrant INPATIENT care.: Yes - Plan Summary Plan Summary: 1.Sepsis likely secondary to UTI from Klebsiella pneumonia. 2. Urinary tract infection secondary to Klebsiella. 3. Severe bradycardia with underlying sick sinus syndrome and atrial fibrillation. 4. Dementia chronic 5. Diverticulitis 6. Hypotension resolved 7. Hypernatremic dehydration- 8. Patient is DNR and comfort care 9. hypokalemia-replaced Patient remains hospice care unless family change their mind.
--- NOTE | 2017-11-10 14:32 | PDOC PROGRESS REPORT ---
Subjective Progress Note for:: 11/10/17 Subjective:: No complaints. Review of system All organ systems evaluated and negative except as in subjective All significant diagnostics and laboratories have been reviewed Reason For Visit: HYPOVOLEMIA/MAINE AND UTI Physical Exam Vital Signs: Temp Pulse Resp BP Pulse Ox 97.6 F 77 24 H 101/56 L 97 11/09/17 20:38 11/09/17 20:38 11/09/17 20:38 11/09/17 20:38 11/09/17 20:38 Intake & Output 11/09/17 11/10/17 11/11/17 06:59 06:59 06:59 Intake Total 964 374 Output Total 775 450 100 Balance 189 -76 -100 Weight 73.4 kg 71.7 kg General appearance: PRESENT: cooperative, thin Head exam: PRESENT: atraumatic, normocephalic Eye exam: PRESENT: conjunctiva pink, EOMI, PERRLA Ear exam: PRESENT: normal external ear exam Mouth exam: PRESENT: moist Neck exam: PRESENT: full ROM. ABSENT: JVD, lymphadenopathy, tenderness Respiratory exam: PRESENT: clear to auscultation radha Cardiovascular exam: PRESENT: RRR. ABSENT: diastolic murmur, systolic murmur Vascular exam: PRESENT: normal capillary refill GI/Abdominal exam: PRESENT: normal bowel sounds, soft, tenderness Extremities exam: ABSENT: full ROM, pedal edema Musculoskeletal exam: ABSENT: ambulatory Neurological exam: PRESENT: alert, awake, oriented to person Skin exam: PRESENT: intact, normal color Results Laboratory Results: 11/06/17 06:07 11/06/17 06:07 Impressions: Abdomen Ultrasound 10/31/17 00:00 IMPRESSION: NORMAL RIGHT UPPER QUADRANT ULTRASOUND. Chest X-Ray 10/31/17 00:00 IMPRESSION: 1. No acute pneumonic process identified. Renal Ultrasound 10/31/17 00:00 IMPRESSION: NORMAL RENAL ULTRASOUND. NO OBSTRUCTIVE UROPATHY. Abdomen/Pelvis CT 11/02/17 09:22 IMPRESSION: Right-sided diverticulitis. Assessment & Plan - Diagnosis (1) Acute renal failure Qualifiers: Acute renal failure type: unspecified Qualified Code(s): N17.9 - Acute kidney failure, unspecified Is this a current diagnosis for this admission?: Yes Plan: Resolved (2) Bradycardia Is this a current diagnosis for this admission?: Yes Plan: ON comfort care (3) Chronic atrial fibrillation Is this a current diagnosis for this admission?: Yes Plan: On comfort care (4) Dementia Qualifiers: Dementia type: Alzheimer's disease Dementia behavioral disturbance: without behavioral disturbance Is this a current diagnosis for this admission?: Yes Plan: On comfort care (5) Hypokalemia Is this a current diagnosis for this admission?: Yes (6) Hypotension Qualifiers: Hypotension type: unspecified hypotension type Qualified Code(s): I95.9 - Hypotension, unspecified Is this a current diagnosis for this admission?: Yes Plan: On comfort care - Time Time Spent with patient: Less than 15 minutes Medications reviewed and adjusted accordingly: Yes Anticipated discharge: Hospice Within: when bed available - Inpatient Certification Based on my medical assessment, after consideration of the patient's comorbidities, presenting symptoms, or acuity I expect that the services needed warrant INPATIENT care.: Yes I certify that my determination is in accordance with my understanding of Medicare's requirements for reasonable and necessary INPATIENT services [42 CFR 412.3e].: Yes Medical Necessity: Significant Comorbidiites Make Outpatient Treatment Too Risky
--- NOTE | 2017-11-10 23:17 | Progress Note ---
Provider Note Provider Note: Palliative Care Note, follow up visit 11/10/17 6:45 PM Two attempts to visit patient at 4: 20pm and 6:45 pm. Earlier patient was asleep with tray of puddings etc next to bed, untouched. No response from patient to tactile or verbal stimuli. At later visit, DIL was at bedside, patient was awake and responding to her with words. He had eaten a little of several of the food items, but she said the chocolate pudding roth him sick and she stopped feeding him. He did recognize her and said some sentences.. He denies pain but he hardly moves and sleeps most of the time. Respirations are unlabored and clear. His heart rate has been in the fifties at intervals per monitor, but mostly has been staying in the 70's without use of atropine. I spoke with Mrs Hardin, patients DIL for some time. They are looking into VA assistance to pay for SNF in [place]. Again I discussed hospice care center with her and reminded her that the care center is fully paid for by Medicare. I encouraged her to let planner put patient on waiting list for bed at [facility] to make it simpler for patient to receive comfort care and not have to have physical therapy attempted, etc. I do understand that they do not want him to go to [place] as they try to visit 2-3 times per day. Discussed patient's slight improvement with DIL in regards to true improvement or perhaps "rally" before passing. However, he is going to have to eat a lot more and take more fluids o sustain life. We discussed his life in recent years and his love of being independent. Mr Hardin would not want to live like this from her description. She is wanting him to be comfortable and well cared for. Will follow for support, she has my cell numer if she has questions or concerns.
--- NOTE | 2017-11-11 11:41 | PDOC PROGRESS REPORT ---
Subjective Progress Note for:: 11/11/17 Subjective:: Patient relates that he feels terrible however does not elaborate. Patient still having extremely poor oral intake. Palliative care note reviewed Review of system All organ systems evaluated and negative except as in subjective All significant diagnostics and laboratories have been reviewed Reason For Visit: HYPOVOLEMIA/MAINE AND UTI Physical Exam Vital Signs: Temp Pulse Resp BP Pulse Ox 97.3 F 70 16 103/54 L 98 11/10/17 07:48 11/10/17 07:48 11/10/17 07:48 11/10/17 07:48 11/11/17 00:24 Intake & Output 11/10/17 11/11/17 11/12/17 06:59 06:59 06:59 Intake Total 374 158 Output Total 450 800 Balance -76 -642 Weight 71.7 kg 69.7 kg General appearance: PRESENT: no acute distress, cooperative, thin Head exam: PRESENT: atraumatic, normocephalic Eye exam: PRESENT: conjunctiva pink, EOMI, PERRLA Ear exam: PRESENT: normal external ear exam Mouth exam: PRESENT: moist Neck exam: PRESENT: full ROM. ABSENT: JVD, lymphadenopathy, tenderness Respiratory exam: PRESENT: clear to auscultation radha Cardiovascular exam: PRESENT: irregular rhythm. ABSENT: RRR, systolic murmur Vascular exam: PRESENT: normal capillary refill GI/Abdominal exam: PRESENT: normal bowel sounds, soft, tenderness Extremities exam: ABSENT: full ROM, pedal edema Musculoskeletal exam: ABSENT: ambulatory Neurological exam: PRESENT: alert, awake Psychiatric exam: PRESENT: depressed Skin exam: PRESENT: normal color Results Laboratory Results: 11/06/17 06:07 11/06/17 06:07 Impressions: Abdomen Ultrasound 10/31/17 00:00 IMPRESSION: NORMAL RIGHT UPPER QUADRANT ULTRASOUND. Chest X-Ray 10/31/17 00:00 IMPRESSION: 1. No acute pneumonic process identified. Renal Ultrasound 10/31/17 00:00 IMPRESSION: NORMAL RENAL ULTRASOUND. NO OBSTRUCTIVE UROPATHY. Abdomen/Pelvis CT 11/02/17 09:22 IMPRESSION: Right-sided diverticulitis. Assessment & Plan - Diagnosis (1) Acute renal failure Qualifiers: Acute renal failure type: unspecified Qualified Code(s): N17.9 - Acute kidney failure, unspecified Is this a current diagnosis for this admission?: Yes Plan: Patient having poor oral intake so therefore suspect that if checking blood work may show recurrence of renal failure due to volume contraction (2) Bradycardia Is this a current diagnosis for this admission?: Yes Plan: ON comfort care (3) Chronic atrial fibrillation Is this a current diagnosis for this admission?: Yes Plan: On comfort care (4) Dementia Qualifiers: Dementia type: Alzheimer's disease Dementia behavioral disturbance: without behavioral disturbance Is this a current diagnosis for this admission?: Yes Plan: On comfort care (5) Hypokalemia Is this a current diagnosis for this admission?: Yes Plan: On comfort care (6) Hypotension Qualifiers: Hypotension type: unspecified hypotension type Qualified Code(s): I95.9 - Hypotension, unspecified Is this a current diagnosis for this admission?: Yes Plan: On comfort care - Time Time Spent with patient: Less than 15 minutes Medications reviewed and adjusted accordingly: Yes Anticipated discharge: Hospice Within: when bed available - Inpatient Certification Based on my medical assessment, after consideration of the patient's comorbidities, presenting symptoms, or acuity I expect that the services needed warrant INPATIENT care.: Yes I certify that my determination is in accordance with my understanding of Medicare's requirements for reasonable and necessary INPATIENT services [42 CFR 412.3e].: Yes Medical Necessity: Significant Comorbidiites Make Outpatient Treatment Too Risky
[2017-11-11] MEDS: SCOPOLAMINE HYDROBROMIDE 1.5 MG PATCH.TD72 TD SCH (11:46)
[2017-11-11] MEDS: MORPHINE SULFATE 10 MG/ML INJ IV PRN (13:48)
--- NOTE | 2017-11-12 18:13 | PDOC PROGRESS REPORT ---
Subjective Progress Note for:: 11/12/17 Subjective:: Patient relates that he feels okay today. Nurse reports that his mood waxes and wanes and is still having poor oral intake Review of system All organ systems evaluated and negative except as in subjective All significant diagnostics and laboratories have been reviewed Reason For Visit: HYPOVOLEMIA/MAINE AND UTI Physical Exam Vital Signs: Temp Pulse Resp BP Pulse Ox 98.0 F 80 16 106/72 95 11/12/17 15:20 11/12/17 15:20 11/12/17 15:20 11/12/17 15:20 11/12/17 15:20 Intake & Output 11/11/17 11/12/17 11/13/17 06:59 06:59 06:59 Intake Total 158 130 0 Output Total 800 675 200 Balance -642 -545 -200 Weight 69.7 kg 68.5 kg General appearance: PRESENT: no acute distress, cooperative Head exam: PRESENT: atraumatic, normocephalic Eye exam: PRESENT: conjunctiva pink, EOMI, PERRLA Ear exam: PRESENT: normal external ear exam Mouth exam: PRESENT: moist Neck exam: PRESENT: full ROM. ABSENT: JVD, lymphadenopathy, tenderness Respiratory exam: PRESENT: clear to auscultation radha Cardiovascular exam: PRESENT: irregular rhythm. ABSENT: diastolic murmur, systolic murmur Vascular exam: PRESENT: pallor GI/Abdominal exam: PRESENT: normal bowel sounds, soft. ABSENT: tenderness Extremities exam: PRESENT: full ROM. ABSENT: pedal edema Musculoskeletal exam: ABSENT: ambulatory Neurological exam: PRESENT: alert, awake, oriented to person Psychiatric exam: PRESENT: depressed Skin exam: PRESENT: normal color Results Laboratory Results: 11/06/17 06:07 11/06/17 06:07 Impressions: Abdomen Ultrasound 10/31/17 00:00 IMPRESSION: NORMAL RIGHT UPPER QUADRANT ULTRASOUND. Chest X-Ray 10/31/17 00:00 IMPRESSION: 1. No acute pneumonic process identified. Renal Ultrasound 10/31/17 00:00 IMPRESSION: NORMAL RENAL ULTRASOUND. NO OBSTRUCTIVE UROPATHY. Abdomen/Pelvis CT 11/02/17 09:22 IMPRESSION: Right-sided diverticulitis. Assessment & Plan - Diagnosis (1) Acute renal failure Qualifiers: Acute renal failure type: unspecified Qualified Code(s): N17.9 - Acute kidney failure, unspecified Is this a current diagnosis for this admission?: Yes Plan: Patient having poor oral intake so therefore suspect that if checking blood work may show recurrence of renal failure due to volume contraction (2) Bradycardia Is this a current diagnosis for this admission?: Yes Plan: ON comfort care (3) Chronic atrial fibrillation Is this a current diagnosis for this admission?: Yes Plan: On comfort care (4) Dementia Qualifiers: Dementia type: Alzheimer's disease Dementia behavioral disturbance: without behavioral disturbance Is this a current diagnosis for this admission?: Yes Plan: On comfort care (5) Hypokalemia Is this a current diagnosis for this admission?: Yes Plan: On comfort care (6) Hypotension Qualifiers: Hypotension type: unspecified hypotension type Qualified Code(s): I95.9 - Hypotension, unspecified Is this a current diagnosis for this admission?: Yes Plan: On comfort care - Time Time Spent with patient: Less than 15 minutes Medications reviewed and adjusted accordingly: Yes Anticipated discharge: Hospice Within: when bed available - Inpatient Certification Based on my medical assessment, after consideration of the patient's comorbidities, presenting symptoms, or acuity I expect that the services needed warrant INPATIENT care.: Yes I certify that my determination is in accordance with my understanding of Medicare's requirements for reasonable and necessary INPATIENT services [42 CFR 412.3e].: Yes Medical Necessity: Significant Comorbidiites Make Outpatient Treatment Too Risky
--- NOTE | 2017-11-13 13:46 | PDOC PROGRESS REPORT ---
Subjective Progress Note for:: 11/13/17 Subjective:: Patient relates that he feels okay today. Nurse reports patient is still having poor oral intake Review of system All organ systems evaluated and negative except as in subjective All significant diagnostics and laboratories have been reviewed Reason For Visit: HYPOVOLEMIA/MAINE AND UTI Physical Exam Vital Signs: Temp Pulse Resp BP Pulse Ox 98.3 F 92 16 126/72 H 91 L 11/13/17 07:25 11/13/17 07:25 11/13/17 07:25 11/13/17 07:25 11/13/17 07:25 Intake & Output 11/12/17 11/13/17 11/14/17 06:59 06:59 06:59 Intake Total 130 123 0 Output Total 675 850 185 Balance -545 -727 -185 Weight 68.5 kg 64.5 kg General appearance: PRESENT: cooperative, thin Head exam: PRESENT: atraumatic, normocephalic Eye exam: PRESENT: conjunctiva pink, EOMI, PERRLA Neck exam: PRESENT: full ROM. ABSENT: JVD, lymphadenopathy, thyromegaly Respiratory exam: PRESENT: clear to auscultation radha Cardiovascular exam: ABSENT: diastolic murmur, irregular rhythm, systolic murmur Vascular exam: PRESENT: pallor GI/Abdominal exam: PRESENT: normal bowel sounds, soft. ABSENT: tenderness Extremities exam: PRESENT: full ROM. ABSENT: pedal edema Musculoskeletal exam: ABSENT: ambulatory Neurological exam: PRESENT: alert, awake, oriented to person Psychiatric exam: PRESENT: depressed Skin exam: PRESENT: pallor Results Laboratory Results: 11/06/17 06:07 11/06/17 06:07 Impressions: Abdomen Ultrasound 10/31/17 00:00 IMPRESSION: NORMAL RIGHT UPPER QUADRANT ULTRASOUND. Chest X-Ray 10/31/17 00:00 IMPRESSION: 1. No acute pneumonic process identified. Renal Ultrasound 10/31/17 00:00 IMPRESSION: NORMAL RENAL ULTRASOUND. NO OBSTRUCTIVE UROPATHY. Abdomen/Pelvis CT 11/02/17 09:22 IMPRESSION: Right-sided diverticulitis. Assessment & Plan - Diagnosis (1) Acute renal failure Qualifiers: Acute renal failure type: unspecified Qualified Code(s): N17.9 - Acute kidney failure, unspecified Is this a current diagnosis for this admission?: Yes Plan: Patient having poor oral intake so therefore suspect that if checking blood work may show recurrence of renal failure due to volume contraction. On comfort care (2) Bradycardia Is this a current diagnosis for this admission?: Yes Plan: ON comfort care (3) Chronic atrial fibrillation Is this a current diagnosis for this admission?: Yes Plan: On comfort care (4) Dementia Qualifiers: Dementia type: Alzheimer's disease Dementia behavioral disturbance: without behavioral disturbance Is this a current diagnosis for this admission?: Yes Plan: On comfort care (5) Hypokalemia Is this a current diagnosis for this admission?: Yes Plan: On comfort care (6) Hypotension Qualifiers: Hypotension type: unspecified hypotension type Qualified Code(s): I95.9 - Hypotension, unspecified Is this a current diagnosis for this admission?: Yes Plan: On comfort care. Transfer to medical floor - Time Time Spent with patient: Less than 15 minutes Medications reviewed and adjusted accordingly: Yes Anticipated discharge: Hospice Within: when bed available - Inpatient Certification Based on my medical assessment, after consideration of the patient's comorbidities, presenting symptoms, or acuity I expect that the services needed warrant INPATIENT care.: Yes I certify that my determination is in accordance with my understanding of Medicare's requirements for reasonable and necessary INPATIENT services [42 CFR 412.3e].: Yes Medical Necessity: Significant Comorbidiites Make Outpatient Treatment Too Risky
[2017-11-14] MEDS: SCOPOLAMINE HYDROBROMIDE 1.5 MG PATCH.TD72 TD SCH (10:15)
--- NOTE | 2017-11-14 12:23 | PDOC TRANSFER SUMMARY ---
General - Admit/Disc Date/PCP Admission Date/Primary Care Provider: 10/31/17 00:43 SATISH ACOSTA Discharge Date: 11/14/17 - Discharge Diagnosis (1) UTI (urinary tract infection) Is this a current diagnosis for this admission?: Yes (2) Sepsis with hypotension Is this a current diagnosis for this admission?: Yes (3) Acute diverticulitis Is this a current diagnosis for this admission?: Yes (4) Acute renal failure Is this a current diagnosis for this admission?: Yes (5) Hypernatremia Is this a current diagnosis for this admission?: Yes (6) Bradycardia Is this a current diagnosis for this admission?: Yes (7) Chronic atrial fibrillation Is this a current diagnosis for this admission?: Yes (8) Dementia Is this a current diagnosis for this admission?: Yes (9) Hypokalemia Is this a current diagnosis for this admission?: Yes (10) Hypotension Is this a current diagnosis for this admission?: Yes (11) Adult failure to thrive Is this a current diagnosis for this admission?: Yes - Additional Information Resuscitation Status: Full Code - Needs to be clarified. Home Medications: Acetaminophen [Tylenol 325 mg Tablet] 650 mg PO Q6HP PRN 10/31/17 Albuterol Sulfate [Ventolin HFA MDI 18 GM] 2 puff IH Q6HP PRN 10/31/17 Dabigatran Etexilate Mesylate [Pradaxa] 75 mg PO Q12 10/31/17 Digoxin [Lanoxin 0.125 mg Tablet] 0.125 mg PO DAILY 10/31/17 Docusate Sodium [Colace 100 mg Capsule] 200 mg PO DAILY 10/31/17 Dutasteride [Avodart] 0.5 mg PO DAILY 10/31/17 Furosemide [Lasix 40 mg Tablet] 40 mg PO DAILY 10/31/17 Hydroxyzine HCl [Atarax 25 mg Tablet] 25 mg PO HSP PRN 10/31/17 Metolazone [Zaroxolyn 5 mg Tablet] 5 mg PO DAILY 10/31/17 Oxybutynin Chloride [Ditropan 5 mg Tablet] 5 mg PO BID 10/31/17 Polyethylene Glycol 3350 [Miralax Powder 17 gm/Packet] 17 gm PO DAILY 10/31/17 History of Present Illness Admission Date/PCP: 10/31/17 00:43 SATISH ACOSTA History of Present Illness: DEJON ROBLERO is a 87 year old male with reported history of dementia of Alzheimer's type, COPD (not sure if on home oxygen), CHF and atrial fib (not sure if anticoagulated) [facility] be [facility] for [facility] tract infection. Given the patient's mental status and the fact that very brief note was sent with him from SNF, most of the history was obtained from the ED physician/notes. According to the ED note, the patient was suspected to have UTI based on urinalysis two days prior to presenting to ED. The patient was any chest pain or shortness of breath or any cough. He complained of abdominal pain but was unable to elaborate further. He was not sure if he was constipated and there was no report of any fever, nausea, vomiting or dysphagia. In the ED, his temperature was 98.3, heart rate 79, respiratory rate 21 (up to 31 so he was placed on 4 L oxygen via nasal cannula), blood pressure 83/60 with oxygen saturation of 95% on 4 L nasal cannula. His WBC was 24.6 and his hemoglobin was 18.4. His potassium was 2.8 and his BUN/creatinine was 102/2.29 (up from 49/1.06 on 10/09/2017). Lactic acid was 2.1. UA was positive. He received 500 mL of both LR and NS x1. He also received 2 gm Cefepime x1 and 20 milliequivalent oral potassium 1 (since IV form is not available). Patient was admitted under the hospitalist service Hospital Course Hospital Course: Patient was admitted from [facility] with abdominal pain. He was treated for sepsis with hypotension due to urinary tract infection secondary to Klebsiella pneumonia with translocation to his blood. He also had many episodes of bradycardia with underlying sick sinus syndrome requiring atropine and has had cardiology consult. Patient was also treated for acute diverticulitis and received a full course of antibiotics IV until November 07. On presentation had elevated BUN, creatinine and sodium deemed to be due to dehydration. His dementia is so severe he cannot make decisions for himself. Family struggled with code status decisions. Finally family agreed for him to be comfort care. Patient was referred for hospice. While in-house he continues with extremely poor oral intake and has remained on comfort care only. Patient has been accepted for inpatient hospice at local facility. Prognosis remains poor at the time of discharge Physical Exam Vital Signs: Temp Pulse Resp BP Pulse Ox 98.0 F 74 26 H 107/60 95 11/13/17 20:01 11/13/17 20:01 11/13/17 20:01 11/13/17 20:01 11/13/17 20:01 Intake & Output 11/13/17 11/14/17 11/15/17 06:59 06:59 06:59 Intake Total 123 10 Output Total 850 510 Balance -727 -500 Weight 64.5 kg 67 kg General appearance: PRESENT: no acute distress, cooperative, thin Head exam: PRESENT: atraumatic, normocephalic Eye exam: PRESENT: conjunctiva pink, EOMI, PERRLA Ear exam: PRESENT: normal external ear exam Neck exam: PRESENT: full ROM. ABSENT: JVD, lymphadenopathy, tenderness Respiratory exam: PRESENT: clear to auscultation radha Cardiovascular exam: ABSENT: diastolic murmur, irregular rhythm, systolic murmur Vascular exam: PRESENT: normal capillary refill GI/Abdominal exam: PRESENT: normal bowel sounds, soft. ABSENT: tenderness Extremities exam: ABSENT: full ROM, pedal edema Musculoskeletal exam: ABSENT: ambulatory Neurological exam: PRESENT: alert, awake, oriented to person Psychiatric exam: PRESENT: flat affect Skin exam: PRESENT: normal color Results Laboratory Results: 11/06/17 06:07 11/06/17 06:07 Impressions: Abdomen Ultrasound 10/31/17 00:00 IMPRESSION: NORMAL RIGHT UPPER QUADRANT ULTRASOUND. Chest X-Ray 10/31/17 00:00 IMPRESSION: 1. No acute pneumonic process identified. Renal Ultrasound 10/31/17 00:00 IMPRESSION: NORMAL RENAL ULTRASOUND. NO OBSTRUCTIVE UROPATHY. Abdomen/Pelvis CT 11/02/17 09:22 IMPRESSION: Right-sided diverticulitis. Transfer Plan - Disposition Transfer Plan: Transferred to hospice house - Time Spent with Patient Time spent with patient: Greater than 30 Minutes Qualifiers - * PATIENT BEING DISCHARGED WITH ANY OF THE FOLLOWING DIAGNOSIS: No
[2017-11-14 13:27] VITALS: BP 127/65
== END 2017-11-14 17:08 | disposition hospice, inpatient (51) | DRG 871 ==
LOC: ER 21:36 → EH 10-31 00:43 → 3S 10-31 02:44
PROVIDERS: ADMIT Internal Medicine Geriatric Medicine; ATTEND Internal Medicine Geriatric Medicine
PROC: 3E0F73Z Introduction of Anti-inflammatory into Respiratory Tract, Via Natural or Artificial Opening (ICD-10-PCS; principal; 2017-10-31)
DX: A41.9 Sepsis, unspecified organism (principal); N17.0 Acute kidney failure with tubular necrosis; N39.0 Urinary tract infection, site not specified; K57.32 Diverticulitis of large intestine without perforation or abscess without bleeding; E87.0 Hyperosmolality and hypernatremia; Z66 Do not resuscitate; Z51.5 Encounter for palliative care; I48.2 Chronic atrial fibrillation; E87.6 Hypokalemia; R62.7 Adult failure to thrive; I95.9 Hypotension, unspecified; G30.9 Alzheimer's disease, unspecified; F02.80 Dementia in other diseases classified elsewhere, unspecified severity, without behavioral disturbance, psychotic disturbance, mood disturbance, and anxiety; J44.9 Chronic obstructive pulmonary disease, unspecified; I50.9 Heart failure, unspecified; B96.1 Klebsiella pneumoniae [K. pneumoniae] as the cause of diseases classified elsewhere; E78.00 Pure hypercholesterolemia, unspecified; I45.10 Unspecified right bundle-branch block; I45.81 Long QT syndrome; R65.20 Severe sepsis without septic shock; K59.09 Other constipation; I44.30 Unspecified atrioventricular block; I49.5 Sick sinus syndrome; E86.0 Dehydration; Z74.01 Bed confinement status; Z90.81 Acquired absence of spleen; Z79.899 Other long term (current) drug therapy; Z87.891 Personal history of nicotine dependence; Z79.01 Long term (current) use of anticoagulants
CPT/HCPCS: 36415; 71045; 74176; 76705; 76775; 80048; 80076; 80162; 81001; 82570; 82803; 83605; 83690; 83735; 83935; 84132; 84156; 84300; 84439; 84443; 84481; 85025; 85027; 87040; 87077; 87086; 87088; 87186; 93005; 93010; 93306; 94640; 96361; 96365; 96367; 99291; G8996-GN; G8997-GN; G8998-GN; J0461; J0692; J1644; J1720; J2060; J2270; J2543; J2550; J3370; J3475; J3480; J3490; J7030; J7040; J7120